=== PATIENT | female | born 1970 | race Caucasian/White ===

== ENCOUNTER 2017-02-18 02:59 | Inpatient (IN) | payer MEDICARE, MEDICAID ==
[~2017-02-18] VITALS: Ht 170.2 cm; Wt 49.4 kg
[2017-02-18] VITALS (46 sets, daily range): BP systolic 81–135; BP diastolic 45–89
[2017-02-18] MEDS ORDERED: NALOXONE PREFILLED SYRINGE 2 MG/2 ML SYRINGE ONE (03:07)
[2017-02-18] MEDS ORDERED: IV NS 0.9% 1,000 ML ONE ×3 (03:09→04:37)
--- NOTE | 2017-02-18 03:09 | NUR ---
PT BIBRA FROM HOME FOR "ALTERED; POSSIBLE ALCOHOL WITHDRAWAL" PER RA 102 REPORT SHALLOW BREATHING WITH RR 6/BRADYCARDIC IN THE 40'S; HYPOTENSIVE 60/47. PT NONVERBAL, NON RESPONSEIVE, NOTED SHALLOW BREATHING, PT PLACED ON NON REBREATHER. NO NVD. PT NOTED PALE. MD AT BEDSIDE FOR EVAL. RT CALLED.
--- NOTE | 2017-02-18 03:10 | NUR ---
ACCJUAN MANUELECK NOTED AT 300. DR. GERMAIN AWARE.
[2017-02-18] MEDS ORDERED: IV SET PRIMARY 1 EA INFUS.SET MC ONE (03:11)
--- NOTE | 2017-02-18 03:11 | NUR ---
IV STARTED ON LEFT AC 20G, PT NONVERBAL, NOTED SHALLOW BREATHING. VERBAL ORDERS PER DR. EVA BECKWITHAN 2MG IVP ONE TIME NOW. PT MEDICATED.
--- NOTE | 2017-02-18 03:12 | NUR ---
IV STARTED ON RIGHT WRIST 18G, RT AT BEDSIDE. VERBAL ORDERS PER DR. GERMAIN TO GIVE IV 2L NS BOLUS ONE TIME NOW. PT MEDICATED. Addendum: 02/18/17 at 0447 by SONU CORRECTION IV STARTED ON RIGHT HAND 18G
--- NOTE | 2017-02-18 03:17 | NUR ---
PT ASPIRATED COFFEE BROWN EMESIS.
--- NOTE | 2017-02-18 03:18 | NUR ---
PT INTUBATED PER DR. GERMAIN, RT AT BEDSIDE. ET TUBE 7.5, 23CM AT THE LIP.
--- NOTE | 2017-02-18 03:18 | NUR ---
PT ORALLY INTUBATED WITH 7.5 ETT AT 23@ THE LIP. SUCTIONED LARGE AMOUNT OF BROWN THICK SECRETIONS, BILATERAL BS NOTED. ABG DONE. VENT ALARMED AND WORKING. VENT PLUGGED INTO RED OUTLET.AMBU BAG AT BEDSIDE. WILL CONTINUE TO MONITOR.
--- NOTE | 2017-02-18 03:26 | NUR ---
NGT INSERTED, 70CM AT THE LIP, PLACED ON CONTINUOUS SUTIONING.
[2017-02-18] MEDS ORDERED: NALOXONE PREFILLED SYRINGE 2 MG/2 ML SYRINGE IV ONE (03:30)
[2017-02-18] MEDS ORDERED: ROCURONIUM BROMIDE 100 MG/10 ML VIAL IV ONE (03:30)
[2017-02-18] MEDS ORDERED: IV NS 0.9% 1,000 ML BAG IV ONE ×3 (03:30→08:00)
--- NOTE | 2017-02-18 03:33 | NUR ---
XRAY AT BEDSIDE
--- NOTE | 2017-02-18 03:35 | NUR ---
PER RT PT PLACED ON VENT WITH PRESCRIBED SETTINGS. AC 16, VT 500 FI02 40%, PEEP 5.
--- NOTE | 2017-02-18 03:43 | NUR ---
16 FR. GRAVES PLACED PER MD, URINE COLLECTED. SENT TO LAB.
--- NOTE | 2017-02-18 03:45 | NUR ---
LAB AT BEDSIDE FOR BLOOD DRAW AND BLOOD CX DRAW
--- NOTE | 2017-02-18 03:56 | NUR ---
PT TO CT WITH RN, RT AND EMT.
[2017-02-18] MEDS ORDERED: PANTOPRAZOLE 80 MG in IV NS 0.9% 500 ML IV PRN (04:00)
[2017-02-18] MEDS ORDERED: PANTOPRAZOLE 80 MG in IV NS 0.9% 100 ML IV ONE (04:00)
[2017-02-18] MEDS ORDERED: IV SET PRIMARY PUMP SET 1 EA INFUS.SET MC ONE ×9 (04:04→20:54)
[2017-02-18] MEDS ORDERED: IV NS 0.9% 100 ML IV ONE ×3 (04:04→05:28)
[2017-02-18] MEDS ORDERED: PANTOPRAZOLE 40 MG VIAL ONE ×2 (04:04→04:27)
[2017-02-18 04:05] LABS: EOSINOPHILS % (AUTO) 0.1 % (0.0-6.0); HEMATOCRIT 36 % (33-45); HEMOGLOBIN 11.4 g/dL (11.5-14.8); LYMPHOCYTES # (AUTO) 1.2 /CMM (0.8-4.8); LYMPHOCYTES % (AUTO) 7.7 % (20.0-44.0); MEAN CORPUSCULAR HEMOGLOBIN 34 PG (26.0-33.0); MEAN CORPUSCULAR HGB CONC 32 g/dl (31.0-36.0); MEAN CORPUSCULAR VOLUME 107 fL (82-100); MONOCYTES # (AUTO) 0.8 /CMM (0.1-1.30); MONOCYTES % (AUTO) 5.3 % (2.0-12.0); NEUTROPHILS % (AUTO) 86.9 % (43.0-81.0); PLATELET COUNT (AUTO) 77 /CMM (150-450); RDW COEFFICIENT OF VARIATION 14.2 (11.5-15.0); RED BLOOD CELL COUNT(AUTO) 3.36 MIL/uL (4.0-5.2); WHITE BLOOD COUNT (AUTO) 14.9 K/uL (4.3-11.0)
--- NOTE | 2017-02-18 04:06 | NUR ---
PT RETURNED FROM CT.
[2017-02-18 04:07] LABS: BILIRUBIN,URINE NEGATIVE (NEGATIVE); BLOOD, URINE 2+ Ery/uL (NEGATIVE); COLOR,URINE YELLOW (YELLOW); KETONES,URINE 2+ (NEGATIVE); LEUKOCYTE ESTERASE ,URINE NEGATIVE (NEGATIVE); NITRITE, URINE NEGATIVE (NEGATIVE); PROTEIN,URINE 2+ mg/dl (NEGATIVE); UGLUCOSE NEGATIVE (NEGATIVE); UROBILINOGEN,URINE 0.2 EU/dL (0.2)
[2017-02-18 04:15] LABS: APPEARANCE,URINE SLIGHTLY CLOUDY (CLEAR)
[2017-02-18 04:18] LABS: URINE AMORPHOUS URATE Many /HPF (None Seen)
[2017-02-18 04:19] LABS: BACTERIA,URINE None seen /HPF (None Seen); SQUAMOUS EPITHELIAL CELL,UR Moderate /HPF (None Seen); WBC,URINE 0-2 /HPF (0-3)
[2017-02-18 04:23] LABS: TROPONIN I 0.027 ng/mL (0.00-0.056)
[2017-02-18] MEDS ORDERED: IV NS 0.9% 500 ML IV ONE (04:27)
[2017-02-18 04:28] LABS: ALANINE AMINOTRANSFERASE 81 U/L (12-78); ALBUMIN 2.6 g/dL (3.4-5.0); ALKALINE PHOSPHATASE 76 U/L (46-116); ASPARTATE AMINOTRANSFERASE 212 U/L (15-37); BILIRUBIN,DIRECT 0.5 mg/dL (0.0-0.2); CALCIUM, SERUM 7.2 mg/dL (8.5-10.1); CHLORIDE 96 mmol/L (98-107); CREATININE 1.4 mg/dL (0.6-1.3); GLUCOSE 258 mg/dL (74-106); POTASSIUM 4.1 mmol/L (3.5-5.1); SODIUM SERUM 133 mmol/L (136-145); TOTAL PROTEIN, SERUM 5.5 g/dL (6.4-8.2); UREA NITROGEN, BLOOD 9 mg/dL (7-18)
[2017-02-18 04:30] LABS: ABG BASE EXCESS -32.1 mmol/L; ABG OXYGEN SATURATION 91.1 % (92.0-98.5); ABG PCO2 33.8 mmHg (35.0-45.0); ABG PH 6.679 (7.350-7.450); ABG PO2 103.5 mmHg (75.0-100.0); AaDO2 142.8 mmHg; COHb 0.1 % (0.5-1.5); MetHb 0.8 % (0.0-1.5); O2Hb 90.3 % (94.0-97.0); PEEP,BG 5 cm H2O; SITE, ABG Right Radial; VT, ABG 500 mL
[2017-02-18] MEDS ORDERED: LEVOFLOXACIN 750 MG /D5W 150ML PIGGYBACK IV ONE (04:30)
[2017-02-18] MEDS ORDERED: AZTREONAM 1 G in IV NS 0.9% 100 ML IV ONE (04:30)
[2017-02-18 04:34] LABS: CARBON DIOXIDE 7 mmol/L (21-32)
[2017-02-18] MEDS ORDERED: SODIUM BICARBONATE SYR 50 MEQ/50 ML DISP.SYRIN ONE ×3 (04:34→04:38)
[2017-02-18 04:40] LABS: INR 1.11 (0.87-1.13)
--- NOTE | 2017-02-18 04:45 | NUR ---
RECEIVED SODIUM BICARB FROM JOCELYN PHELPS
[2017-02-18] MEDS ORDERED: AZTREONAM 1 G VIAL ONE (04:50)
[2017-02-18 04:56] LABS: ALCOHOL, BLOOD 4 mg/dL (0-0)
[2017-02-18] MEDS ORDERED: SODIUM BICARBONATE SYR 100 MEQ in IV NS 0.9% 1,000 ML IV PRN (05:00)
[2017-02-18] MEDS ORDERED: SODIUM BICARBONATE SYR 50 MEQ/50 ML DISP.SYRIN IV ONE (05:00)
--- NOTE | 2017-02-18 05:23 | NUR ---
REPORT GIVEN TO JOCELYN FULTON FOR CONTINUE OF CARE.
[2017-02-18] MEDS ORDERED: INSULIN REGULAR, HUMAN 100 UNIT in IV NS 0.9% 99 ML IV PRN ×2 (05:30)
[2017-02-18] MEDS ORDERED: INSULIN REGULAR, HUMAN 100 UNIT/ML 10 ML VIAL ONE (05:32)
--- NOTE | 2017-02-18 05:36 | NUR ---
DR. GERMAIN AT BEDSIDE SPEAKING TO REGARDING POC.
[2017-02-18 05:41] LABS: BAND % (MANUAL) 7 % (0.0-5.0); LYMPHOCYTES % (MANUAL) 9 % (16-48); MONOCYTES % (MANUAL) 4 % (0-11.0); NEUTROPHILS % (MANUAL) 80 (42-76)
--- NOTE | 2017-02-18 05:48 | NUR ---
MAYDA GERMAIN TO HOLD INSULIN DRIP AT THIS TIME.
--- NOTE | 2017-02-18 05:49 | NUR ---
RECTAL TEMP NOTED AT 94.[address] GERMAIN
--- NOTE | 2017-02-18 06:03 | NUR ---
DR. GERMAIN SPEAKING TO DR. CARDONA REGARDING ADMISSION.
--- NOTE | 2017-02-18 06:13 | NUR ---
DEFECT REPAIRER GLASSWARE: PT RECEIVED ORALLY INTUBATED AND TOLERATING VENT SETTINGS ORDERED. OBTUNDED, NOT ON ANY SEDATION DRIP AND WITHDRAWS ONLY TO DEEP PAIN STIMULI. NO ACUTE DISTRESS, NO EVIDENCE OF DISCOMFORT. TEMP=94.7 AND WILL CONTINUE TO PLACE ON ROSA HUGGER. ST ON MONITOR WT HR IN THE 120s. ONGOING PROTONIX AND BICARB DRIP. NOTED MODERATE NASAL BLEEDING. OGT CLAMPED. HOB ELEVATED. F/C PATENT AND INTACT DRAINING YELLOW URINE. BODY ASSESSMENT DONE. REPOSITIONED FOR COMFORT. SAFETY PRECAUTION NOTED. AWAITING FOR ADMISSION ORDERS.
--- NOTE | 2017-02-18 06:22 | NUR ---
PT TRANSFERED PER ACLS PROTOCOL.
[2017-02-18] MEDS ORDERED: LEVOFLOXACIN 750 MG /D5W 150ML 150 ML IV ONE (06:42)
--- NOTE | 2017-02-18 07:15 | NUR ---
PIN FEATHER MACHINE OPERATOR- INITIAL NOTE RECEIVED PT DROWSY, INTUBATED ETT 7.5, 23 CM AT THE LIP. ON MECHANICAL VENT: AC 16, 5V 500, FI02 40%, PEEP 5. BEDSIDE MONITOR REVEALS SINUS TACHYCARDIA, HR= 120. OG TUBE PRESENT AND CLAMPED. TWO IVS PRESENT: LAC 20G HL AND RIGHT HAND 20G RUNNING RUNNING NA BICARB @ 100 MLS/HR AND PROTONIX GTT AT 50 MLS/HR. BOTH IVS FLUSHED, PATENT, INTACT AND FREE OF REDNESS, SWELLING & INFLAMMATION. GRAVES CATHETER DRAINING VITO, CLEAR URINE TO GRAVITY. WILL CALL MD FOR ADMITTING ORDERS. SAFETY MEASURES TAKEN: BED LOCKED AND IN LOW POSITION, SIDE RAILS UP X2 AND BED ALARM ON, WILL CONTINUE TO MONITOR. Addendum: 02/18/17 at 1207 by LOU CABRAL RN RECEIVED PT ON ROSA ALVAREZ. WILL CONTINUE TO MONITOR CORE TEMP IS ROSA ALVAREZ IS STILL NEEDED.
--- NOTE | 2017-02-18 07:35 | NUR ---
CRAB FISHERMAN- CALLED AND SPOKE TO PT'S , JEAN DAVIS OBTAINED CONSENT FOR PICC LINE, VERIFIED WITH DILAN BANKS. WILL CONTINUE TO MONITOR.
[2017-02-18] MEDS ORDERED: IV D5/ 0.9% NACL 1,000 ML IV PRN (08:00)
[2017-02-18] MEDS ORDERED: PHENYLEPHRINE 20 MG in IV D5W 250 ML IV PRN ×2 (08:00)
[2017-02-18] MEDS ORDERED: VANCOMYCIN 1 GM in IV D5W 250 ML IV ONE (08:00)
--- NOTE | 2017-02-18 08:20 | NUR ---
TIE SAWYER- ABGS DONE BY RT. RATE INCREASED TO 20 AND FIO2 INCREASED TO 70%, PT SATURATING AT 97%, WILL CONTINUE TO MONITOR.
[2017-02-18] MEDS ORDERED: FEE PK DOSING 1 MIN EA MC ONE (08:23)
[2017-02-18 08:29] LABS: ABG BASE EXCESS -16.9 mmol/L; ABG OXYGEN SATURATION 85.7 % (92.0-98.5); ABG PCO2 32.9 mmHg (35.0-45.0); ABG PH 7.141 (7.350-7.450); ABG PO2 60.2 mmHg (75.0-100.0); AaDO2 259.3 mmHg; COHb 0.4 % (0.5-1.5); O2Hb 84.5 % (94.0-97.0); PEEP,BG 5 cm H2O; SITE, ABG Left Radial; VT, ABG 500 mL
[2017-02-18] MEDS ORDERED: PROPOFOL 100 ML IV PRN (08:30)
[2017-02-18] MEDS ORDERED: SECONDARY IV SET 1 EA INFUS.SET MC ONE (08:48)
[2017-02-18] MEDS: PANTOPRAZOLE 80 MG in IV NS 0.9% 500 ML IV PRN ×2 (08:55→15:08)
[2017-02-18] MEDS ORDERED: PANTOPRAZOLE 40 MG VIAL IV SCH (09:00)
[2017-02-18] MEDS: VANCOMYCIN 0.75 GM in IV D5W 250 ML IV SCH ×2 (09:01→20:58)
[2017-02-18] MEDS: Thiamine 100 MG in IV D5W 50 ML IV SCH (09:04)
[2017-02-18] MEDS: Folic acid 1 MG in IV D5W 50 ML IV SCH (09:27)
[2017-02-18] MEDS: MORPHINE SULFATE INJ 2 MG/ML DISP.SYRIN IV PRN (09:30)
[2017-02-18 09:44] LABS: THYROID STIMULATING HORMONE 0.886 uIU/mL (0.358-3.74)
[2017-02-18] MEDS: PIPERACILLIN /TAZOBACTAM 3.375 G in IV D5W 50 ML IV SCH ×3 (10:16→22:20)
[2017-02-18] MEDS ORDERED: Sodium Bicarbonate 150 MEQ in IV D5W 1,000 ML IV PRN (10:30)
[2017-02-18] MEDS: LORAZEPAM INJ 2 MG/ML VIAL IVP PRN ×3 (10:46→22:32)
[2017-02-18 12:09] LABS: BASOPHILS % (AUTO) 0.2 % (0.0-2.0); HEMATOCRIT 31 % (33-45); HEMOGLOBIN 10.5 g/dL (11.5-14.8); LYMPHOCYTES # (AUTO) 0.3 /CMM (0.8-4.8); LYMPHOCYTES % (AUTO) 3.2 % (20.0-44.0); MEAN CORPUSCULAR HEMOGLOBIN 35 PG (26.0-33.0); MEAN CORPUSCULAR HGB CONC 34 g/dl (31.0-36.0); MEAN CORPUSCULAR VOLUME 101 fL (82-100); MONOCYTES # (AUTO) 0.3 /CMM (0.1-1.30); MONOCYTES % (AUTO) 2.8 % (2.0-12.0); NEUTROPHILS # (AUTO) 8.3 /CMM (1.8-8.9); NEUTROPHILS % (AUTO) 93.8 % (43.0-81.0); PLATELET COUNT (AUTO) 51 /CMM (150-450); RDW COEFFICIENT OF VARIATION 13.7 (11.5-15.0); RED BLOOD CELL COUNT(AUTO) 3.04 MIL/uL (4.0-5.2); WHITE BLOOD COUNT (AUTO) 8.9 K/uL (4.3-11.0)
[2017-02-18 12:44] LABS: BAND % (MANUAL) 13 % (0.0-5.0); LYMPHOCYTES % (MANUAL) 5 % (16-48); MONOCYTES % (MANUAL) 3 % (0-11.0); NEUTROPHILS % (MANUAL) 79 (42-76)
[2017-02-18] MEDS: PROPOFOL 100 ML IV PRN ×3 (13:30→23:49)
[2017-02-18] MEDS ORDERED: Z GUARD REMEDY 2 OZ OINT TP PRN (14:30)
[2017-02-18] MEDS ORDERED: ACETAMINOPHEN 650 MG/SUPP.RECT RC PRN (14:30)
[2017-02-18] MEDS ORDERED: NITROPRUSSIDE SODIUM 50 MG in IV D5W 250 ML IV PRN (15:00)
[2017-02-18 16:48] LABS: ABG BASE EXCESS -7.4 mmol/L; ABG OXYGEN SATURATION 98.9 % (92.0-98.5); ABG PCO2 23.8 mmHg (35.0-45.0); ABG PH 7.427 (7.350-7.450); ABG PO2 233.7 mmHg (75.0-100.0); AaDO2 239.8 mmHg; COHb 0.3 % (0.5-1.5); MetHb 1.1 % (0.0-1.5); O2Hb 97.5 % (94.0-97.0); PEEP,BG 5 cm H2O; SITE, ABG Right Radial; VT, ABG 500 mL
--- NOTE | 2017-02-18 17:00 | NUR ---
DECORATIVE CUTTING MACHINE TENDER- INFORMED DR. WEBBER OF PT'S ABG RESULTS, H= 7.42, PC02 23.8, HC03= 15.3 AND PO2= 233.7. PER MD, DISCONTINUE BICARB GTT AND RESUME PREVIOUS IVF OF D5NS @ 100 MLS/HR. ORDERS PLACED AND CARRIED OUT. WILL CONTINUE TO MONITOR.
[2017-02-18] MEDS ORDERED: IV D5/ 0.9% NACL 1,000 ML IV ONE (17:30)
[2017-02-18 17:47] LABS: BILIRUBIN,DIRECT 1.3 mg/dL (0.0-0.2); TOTAL PROTEIN, SERUM 4.4 g/dL (6.4-8.2)
[2017-02-18] MEDS: IV D5/ 0.9% NACL 1,000 ML IV PRN (18:12)
[2017-02-18 18:27] LABS: BILIRUBIN,TOTAL 2.6 mg/dL (0.2-1.0)
--- NOTE | 2017-02-18 18:45 | NUR ---
DATA MINER- END OF SHIFT NOTE PT REMAINS DROWSY, CONTINUES ON DIPRIVAN GTT AT 70 MCG/MIN AND BILATERAL SOFT WRIST RESTRAINTS. CARRIE PICC LINE ALSO RUNNING D5NS @ 100 MLS/HR AND PROTONIX GTT AT 50 MLS/HR. OGT REMAINS CONNECTED TO LIS, MINIMAL OUTPUT NOTED. GRAVES CATHETER DRAINING TO GRAVITY. PT SEEN AND EXAMINED TODAY BY DR. PATTERSON, DR. DURAN, DR. WEBBER, DR. DEGROOT AND DR. PORTER. ALL ORDERS CARRIED OUT. VITAL SIGNS STABLE. WILL ENDORSE TO FOOD CART ATTENDANT NURSE FOR CONTINUITY OF CARE.
--- NOTE | 2017-02-18 19:30 | NUR ---
DIKE SUPERVISOR: RECEIVED PT ORALLY INTUBATED AND TOLERATING VENT SETTINGS ORDERED. SEDATED ON DIPRIVAN DRIP AT 70MCG/KG/MIN. ABLE TO OPEN EYES WT LIGHT PAIN AND FOLLOW SIMPLE COMMANDS. ST ON MONITOR WT HR IN LOW 100s. TEMP=99.1 VIA NASAL PROBE. WT EPISODES OF MOVING LEGS, ARMS AND TRYING TO PULL TUBINGS. BILAT. SOFT WRIST RESTRAINTS IN PLACE PER PROTOCOL. CONTINUE ON PROTONIX DRIP FOR POSSIBLE GI BLEED. OGT IN PLACE & ON LOW INTERMITTENT SUCTION WT NO GASTRIC OUTPUT AT THIS TIME. TOLERATING D5 NS AT 100ML/HR WT GOOD URINE OUTPUT VIA F/C. HOB ELEVATED. SAFETY PRECAUTION NOTED. WILL CONTINUE TO MONITOR.
--- NOTE | 2017-02-18 20:10 | NUR ---
LIGHT RAIL VEHICLE OPERATOR: AT BEDSIDE AND UPDATED PT. STATUS. GIVEN BACK 3 RINGS AND WITNESSED BY ED, CHARGE NURSE.
--- NOTE | 2017-02-18 23:30 | NUR ---
MEAT PASSER: PT STILL NOTED WT EPISODE OF RESTLESSNESS AND TRYING TO PULL TUBINGS EVEN AFTER BEING GIVEN ATIVAN. PT. OPENS EYES AND FOLLOW SIMPLE COMMANDS. BILAT. SOFT WRIST RESTRAINTS IN PLACE WT GOOD CIRCULATION AND NO NEW SKIN BREAKDOWN WHEN RELEASED AND CHECKED.
[2017-02-19] VITALS (43 sets, daily range): BP systolic 82–115; BP diastolic 42–81
[2017-02-19] MEDS: PANTOPRAZOLE 80 MG in IV NS 0.9% 500 ML IV PRN ×3 (00:10→21:00)
[2017-02-19] MEDS: PROPOFOL 100 ML IV PRN ×6 (02:39→20:17)
[2017-02-19] MEDS: PIPERACILLIN /TAZOBACTAM 3.375 G in IV D5W 50 ML IV SCH ×4 (04:15→22:05)
[2017-02-19 05:00] LABS: EOSINOPHILS % (AUTO) 0.1 % (0.0-6.0); HEMATOCRIT 28 % (33-45); HEMOGLOBIN 9.9 g/dL (11.5-14.8); LYMPHOCYTES # (AUTO) 0.7 /CMM (0.8-4.8); LYMPHOCYTES % (AUTO) 6.1 % (20.0-44.0); MEAN CORPUSCULAR HEMOGLOBIN 35 PG (26.0-33.0); MEAN CORPUSCULAR HGB CONC 35 g/dl (31.0-36.0); MEAN CORPUSCULAR VOLUME 101 fL (82-100); MONOCYTES # (AUTO) 0.2 /CMM (0.1-1.30); MONOCYTES % (AUTO) 1.8 % (2.0-12.0); NEUTROPHILS # (AUTO) 9.8 /CMM (1.8-8.9); RDW COEFFICIENT OF VARIATION 13.6 (11.5-15.0); RED BLOOD CELL COUNT(AUTO) 2.83 MIL/uL (4.0-5.2); WHITE BLOOD COUNT (AUTO) 10.7 K/uL (4.3-11.0)
[2017-02-19 05:03] LABS: PLATELET COUNT (AUTO) 41 /CMM (150-450)
[2017-02-19 05:04] LABS: TROPONIN I 0.089 ng/mL (0.00-0.056)
[2017-02-19 05:09] LABS: CREATINE KINASE MB 13.4 ng/mL (0-3.6)
[2017-02-19 05:10] LABS: LYMPHOCYTES % (MANUAL) 6 % (16-48); MONOCYTES % (MANUAL) 2 % (0-11.0); NEUTROPHILS % (MANUAL) 92 (42-76)
[2017-02-19] MEDS: IV D5/ 0.9% NACL 1,000 ML IV PRN ×2 (05:16→22:06)
--- NOTE | 2017-02-19 06:50 | NUR ---
HORTICULTURAL TECHNICAL OFFICER: REMAINED SEDATED ON DIPRIVAN DRIP AT 75MCG/KG/MIN. STILL WT EPISODES OF TRYING TO PULL TUBINGS. BILAT. SOFT WRIST RESTRAINTS IN PLACE PER PROTOCOL. SAFETY PRECAUTION NOTED AT ALL TIMES.
--- NOTE | 2017-02-19 07:33 | NUR ---
PERFUME COMPOUNDER RECEIVED PATIENT FROM THE PREVIOUS SHIFT. PATIENT IS IN BED. SEDATED ON DIPRIVAN 75 MCG. AFEBRILE. SINUS RHYTHM ON MONITOR. PATIENT IS ABLE TO FOLLOW COMMANDS. RESTRAINTS ARE ON FOR SAFETY. TURNED AND REPOSITIONED FOR COMFORT AND WOUND PREVENTION. WILL CONTINUE TO MONITOR AND PROVIDE CARE.
[2017-02-19] MEDS ORDERED: IV SET PRIMARY PUMP SET 1 EA INFUS.SET MC ONE ×2 (08:53→20:05)
[2017-02-19] MEDS: VANCOMYCIN 0.75 GM in IV D5W 250 ML IV SCH ×2 (08:57→21:00)
[2017-02-19] MEDS: LORAZEPAM INJ 2 MG/ML VIAL IVP PRN ×2 (08:58→12:07)
[2017-02-19 09:25] LABS: ALBUMIN 2.2 g/dL (3.4-5.0); BILIRUBIN,TOTAL 1.2 mg/dL (0.2-1.0); CALCIUM, SERUM 6.6 mg/dL (8.5-10.1); CREATININE 0.9 mg/dL (0.6-1.3); TOTAL PROTEIN, SERUM 4.8 g/dL (6.4-8.2)
[2017-02-19 09:33] LABS: MAGNESIUM 1.6 mg/dL (1.8-2.4); POTASSIUM 2.8 mmol/L (3.5-5.1)
[2017-02-19 09:36] LABS: PHOSPHORUS 0.3 mg/dL (2.5-4.9)
[2017-02-19] MEDS: Folic acid 1 MG in IV D5W 50 ML IV SCH (09:56)
[2017-02-19] MEDS: Thiamine 100 MG in IV D5W 50 ML IV SCH (09:56)
[2017-02-19 10:18] LABS: INR 1.04 (0.87-1.13); PROTHROMBIN TIME 11.2 SECS (9.5-12.7)
[2017-02-19] MEDS: MORPHINE SULFATE INJ 2 MG/ML DISP.SYRIN IV PRN (10:25)
[2017-02-19] MEDS ORDERED: SECONDARY IV SET 1 EA INFUS.SET MC ONE (10:33)
[2017-02-19] MEDS: POTASSIUM CL. PREMIX PERIPHER. 50 ML IV SCH ×6 (11:14→23:07)
[2017-02-19] MEDS: Magnesium 1GM/D5W 100ML PREMIX 100 ML IV SCH ×4 (11:14→14:05)
[2017-02-19] MEDS: Potassium Phosphate meq 11 MEQ in IV D5W 100 ML IV SCH ×2 (11:15→15:01)
[2017-02-19 12:59] LABS: ABG BASE EXCESS -1.2 mmol/L; ABG OXYGEN SATURATION 98.4 % (92.0-98.5); ABG PCO2 23.3 mmHg (35.0-45.0); ABG PH 7.554 (7.350-7.450); ABG PO2 213.5 mmHg (75.0-100.0); AaDO2 152.7 mmHg; COHb 0.3 % (0.5-1.5); MetHb 1.2 % (0.0-1.5); O2Hb 96.9 % (94.0-97.0); PEEP,BG 5 cm H2O; SITE, ABG Right Radial; VT, ABG 500 mL
[2017-02-19 14:16] LABS: D-DIMER 3.79 mg/L(FEU (0.17-0.50); INR 1.06 (0.87-1.13); PROTHROMBIN TIME 11.4 SECS (9.5-12.7)
[2017-02-19] MEDS ORDERED: PRED25PO13 MC (14:25)
[2017-02-19] MEDS ORDERED: EPIN0.3P3 IJ (14:25)
[2017-02-19] MEDS ORDERED: HYDR-3652 PO (14:25)
[2017-02-19] MEDS ORDERED: MOME15OI2 TP (14:25)
[2017-02-19] MEDS ORDERED: DICL75TA5 PO (14:26)
--- NOTE | 2017-02-19 16:18 | NUR ---
[employer] WEBSPHERE PORTAL DEVELOPER RN CALLED ER X 3 TO INQUIRE ABOUT THE MISSING BLUE BAG. ER PERSONNEL COULD NOT FIND THE BELONGINGS. VICE PRESIDENT INDUSTRIAL RELATIONS MADE AWARE.
[2017-02-19] MEDS ORDERED: Magnesium 1GM/D5W 100ML PREMIX 100 ML IV SCH (17:56)
[2017-02-19] MEDS ORDERED: Sodium Phosphate 15 MMOL in IV D5W 250 ML IV ONE (18:00)
[2017-02-19] MEDS ORDERED: PHENYLEPHRINE 20 MG in IV D5W 250 ML IV PRN (19:00)
--- NOTE | 2017-02-19 20:00 | NUR ---
Received patient sedated.VS stable.SR per cardiac monitoring.Orally intubated to vent on AC mode. Tolerating prescribed vent settings.SPO2 100%.Suction small amount blood tinge secretions.Oral care done.NPO with NGT to LCS draining small amount coffee ground output.Abdomen soft BS active.FC with clear tor urine.Turned and repositioned offloading pressure points.SCD on bilaterally.Maintained on KCI mattress.IVF,Protonix drip and Diprivan drip infusing via CARRIE PICC Line and site intact.Continue monitoring.
[2017-02-19 20:46] LABS: CALCIUM, SERUM 6.5 mg/dL (8.5-10.1); CREATININE 0.7 mg/dL (0.6-1.3); MAGNESIUM 2.9 mg/dL (1.8-2.4)
[2017-02-19 20:56] LABS: IRON, SERUM 54 ug/dl (50-175); TOTAL IRON BINDING CAPACITY 147 ug/dl (250-450)
[2017-02-19 20:58] LABS: POTASSIUM 2.2 mmol/L (3.5-5.1)
--- NOTE | 2017-02-19 21:50 | NUR ---
Patient K2.2 called to with orders and carried out.
[2017-02-19] MEDS ORDERED: POTASSIUM CHLORIDE 20 MEQ POWDER PACKET ONE (21:53)
[2017-02-19] MEDS ORDERED: POTASSIUM CL. PREMIX PERIPHER. 300 ML ONE (21:53)
[2017-02-19] MEDS ORDERED: POTASSIUM CHLORIDE 20 MEQ POWDER PACKET GT ONE (22:00)
--- NOTE | 2017-02-19 22:00 | NUR ---
Abdominal Ultrasound done at bedside by US TECH.
[2017-02-20] VITALS (76 sets, daily range): BP systolic 79–137; BP diastolic 49–95
[2017-02-20] MEDS ORDERED: IV SET PRIMARY PUMP SET 1 EA INFUS.SET MC ONE ×2 (00:03→15:29)
[2017-02-20] MEDS: POTASSIUM CL. PREMIX PERIPHER. 50 ML IV SCH ×4 (00:07→03:12)
--- NOTE | 2017-02-20 00:30 | NUR ---
Patient BP unstable.79/49 Neosynephrine drip started at 20 mcg/min and will titrate accordingly. Medication unable to scan.Multiple scan done by 2 RN per emar says it exceed dose.
[2017-02-20] MEDS: PROPOFOL 100 ML IV PRN ×4 (01:32→20:32)
[2017-02-20] MEDS: PIPERACILLIN /TAZOBACTAM 3.375 G in IV D5W 50 ML IV SCH ×4 (04:05→21:51)
[2017-02-20 04:45] LABS: BASOPHILS % (AUTO) 0.1 % (0.0-2.0); EOSINOPHILS # (AUTO) 0.2 /CMM (0.0-0.7); EOSINOPHILS % (AUTO) 1.8 % (0.0-6.0); HEMATOCRIT 30 % (33-45); HEMOGLOBIN 10.2 g/dL (11.5-14.8); LYMPHOCYTES # (AUTO) 0.8 /CMM (0.8-4.8); LYMPHOCYTES % (AUTO) 8.2 % (20.0-44.0); MEAN CORPUSCULAR HEMOGLOBIN 34 PG (26.0-33.0); MEAN CORPUSCULAR HGB CONC 34 g/dl (31.0-36.0); MEAN CORPUSCULAR VOLUME 100 fL (82-100); MONOCYTES # (AUTO) 0.2 /CMM (0.1-1.30); MONOCYTES % (AUTO) 2.4 % (2.0-12.0); NEUTROPHILS # (AUTO) 8.4 /CMM (1.8-8.9); NEUTROPHILS % (AUTO) 87.5 % (43.0-81.0); RDW COEFFICIENT OF VARIATION 14.8 (11.5-15.0); RED BLOOD CELL COUNT(AUTO) 3.02 MIL/uL (4.0-5.2); WHITE BLOOD COUNT (AUTO) 9.6 K/uL (4.3-11.0)
[2017-02-20 04:49] LABS: PLATELET COUNT (AUTO) 40 /CMM (150-450)
[2017-02-20 05:02] LABS: LYMPHOCYTES % (MANUAL) 10 % (16-48); MONOCYTES % (MANUAL) 1 % (0-11.0); NEUTROPHILS % (MANUAL) 89 (42-76)
[2017-02-20 05:55] LABS: CALCIUM, SERUM 7.1 mg/dL (8.5-10.1); CREATININE 0.8 mg/dL (0.6-1.3); MAGNESIUM 2.8 mg/dL (1.8-2.4); POTASSIUM 4.4 mmol/L (3.5-5.1)
[2017-02-20 05:57] LABS: PHOSPHORUS 0.7 mg/dL (2.5-4.9)
--- NOTE | 2017-02-20 06:27 | NUR ---
Patient AM labs resulted.Phosphorus 0.7 called to with read back telephone orders received and carried out.
[2017-02-20] MEDS ORDERED: NEUTRA PHOS 1 POWD.PACKET ONE ×3 (06:30→21:44)
[2017-02-20] MEDS ORDERED: NEUTRA PHOS 1 POWD.PACKET PO ONE (07:00)
--- NOTE | 2017-02-20 07:01 | NUR ---
Patient resting all due medications given.SR.Rudy synephrine infusing at 40 mcg/min. No acute distress noted.Report given to JOCELYN LAWSON for continuity of care.
[2017-02-20] MEDS: PANTOPRAZOLE 80 MG in IV NS 0.9% 500 ML IV PRN ×2 (07:15→17:38)
--- NOTE | 2017-02-20 07:45 | NUR ---
AUTO SELF SERVICE STATION ATTENDANT RECEIVED PATIENT FROM THE PREVIOUS SHIFT. PATIENT IS IN BED. SEDATED ON DIPRIVAN 60 MCG/KG. ON 40 MCG/MIN NEOSENEPHRINE. BP MONITORED. AFEBRILE. IVF RUNNING. PROTONIX GTT RUNNING. TURNED AND REPOSITIONED FOR COMFORT AND WOUND PREVENTION. WILL CONTINUE TO MONITOR AND PROVIDE CARE.
[2017-02-20] MEDS: IV D5/ 0.9% NACL 1,000 ML IV PRN ×2 (08:30→21:51)
[2017-02-20] MEDS: VANCOMYCIN 0.75 GM in IV D5W 250 ML IV SCH ×2 (08:30→20:36)
[2017-02-20] MEDS ORDERED: PHENYLEPHRINE 20 MG in IV D5W 250 ML IV PRN (09:00)
[2017-02-20] MEDS: Folic acid 1 MG in IV D5W 50 ML IV SCH (09:31)
[2017-02-20] MEDS: Thiamine 100 MG in IV D5W 50 ML IV SCH (09:31)
[2017-02-20] MEDS: Potassium Phosphate meq 11 MEQ in IV D5W 100 ML IV SCH ×2 (11:55→15:35)
[2017-02-20] MEDS: CALCITRIOL ORAL SOLUTION 1 MCG/ML NG SCH (11:56)
--- NOTE | 2017-02-20 16:10 | NUR ---
RAYMOND was unable to perform social service consultation because the patient was intubated. RAYMOND will check in with patient tomorrow (02/21).
[2017-02-20] MEDS ORDERED: NEUTRA PHOS 1 POWD.PACKET NG ONE (22:00)
[2017-02-21] VITALS (55 sets, daily range): BP systolic 96–166; BP diastolic 60–97
[2017-02-21] MEDS ORDERED: IV SET PRIMARY PUMP SET 1 EA INFUS.SET MC ONE ×2 (00:28→13:43)
[2017-02-21] MEDS: PROPOFOL 100 ML IV PRN ×5 (00:37→21:36)
--- NOTE | 2017-02-21 01:34 | NUR ---
PROCESSING ENGINEER- RECEIVED PT.ON DIPRIVAN GTT. AT 70MCG/KG/MIN. PT. TAKES ROUGHLY 8-10 MINS. FOR HER TO BE MIN. AROUSABLE FOR SEDATION VACATION. PT. HAD PHOS LEVEL DRAWN AT 1999. LEVEL WAS LOW AT 1.3. DR.SAM SOTO WAS PAGED & ORDERS REC'D. PT. WAS ADM. 4 PKTS OF NEUTROPHOS VIA OGT/CLAMPED X ONE HR. THEN PUT BACK TO LIS. GRAVES CATH TO GRAVITY W/GOOD UOP. PT. HAS ALOT OF SELF INFLICTED SCRATCHES TO FACE-ACCORDING TO HUSBANDS TESTIMONY. TMAX AT 99.7. COOLING MEASURES STARTED. PT.IS VENTED W/PATENT AIRWAY. POSSIBLE WEANING TRIALS IN AM. CONT. POC.
[2017-02-21] MEDS: PIPERACILLIN /TAZOBACTAM 3.375 G in IV D5W 50 ML IV SCH ×4 (04:00→21:34)
[2017-02-21 04:48] LABS: BASOPHILS # (AUTO) 0.1 /CMM (0.0-0.2); BASOPHILS % (AUTO) 0.6 % (0.0-2.0); EOSINOPHILS # (AUTO) 0.3 /CMM (0.0-0.7); EOSINOPHILS % (AUTO) 2.3 % (0.0-6.0); HEMATOCRIT 31 % (33-45); HEMOGLOBIN 10.3 g/dL (11.5-14.8); LYMPHOCYTES # (AUTO) 0.9 /CMM (0.8-4.8); LYMPHOCYTES % (AUTO) 7.7 % (20.0-44.0); MEAN CORPUSCULAR HEMOGLOBIN 34 PG (26.0-33.0); MEAN CORPUSCULAR HGB CONC 33 g/dl (31.0-36.0); MEAN CORPUSCULAR VOLUME 101 fL (82-100); MONOCYTES # (AUTO) 0.8 /CMM (0.1-1.30); MONOCYTES % (AUTO) 6.9 % (2.0-12.0); NEUTROPHILS # (AUTO) 10.1 /CMM (1.8-8.9); NEUTROPHILS % (AUTO) 82.5 % (43.0-81.0); PLATELET COUNT (AUTO) 51 /CMM (150-450); RDW COEFFICIENT OF VARIATION 14.9 (11.5-15.0); RED BLOOD CELL COUNT(AUTO) 3.08 MIL/uL (4.0-5.2); WHITE BLOOD COUNT (AUTO) 12.2 K/uL (4.3-11.0)
[2017-02-21 05:03] LABS: CALCIUM, SERUM 7.1 mg/dL (8.5-10.1); CREATININE 0.7 mg/dL (0.6-1.3); MAGNESIUM 1.8 mg/dL (1.8-2.4); PHOSPHORUS 1.6 mg/dL (2.5-4.9); POTASSIUM 3.8 mmol/L (3.5-5.1)
[2017-02-21 05:39] LABS: BAND % (MANUAL) 1 % (0.0-5.0); LYMPHOCYTES % (MANUAL) 5 % (16-48); MONOCYTES % (MANUAL) 7 % (0-11.0); MYELOCYTES % 1 % (0-0); NEUTROPHILS % (MANUAL) 86 (42-76)
--- NOTE | 2017-02-21 06:00 | NUR ---
HEMODIALYSIS LAB TECHNICIAN - PT. HAD COMPLETE BEDBATH DONE AT 3AM. MOISTURIZER TO FACE HELPED SLOUGH OFF VERY DRY SKIN. NO CHANGES NOTED FROM PREVIOUS ASSESSMENTS. REPORT ENDORSED TO RENNY BANKS. CONT.POC.
--- NOTE | 2017-02-21 08:19 | NUR ---
PT UNABLE TO ABRAHAM. WEANING AT THIS TIME. INCREASED RR TO 40-50BPM. RN AWARE. BACK TO AC MODE.
--- NOTE | 2017-02-21 08:31 | NUR ---
WOUND CARE CONSULT: PT NOT SEEN YET FOR SKIN ASSESSMENT DUE TO PT BEING WEANED FROM VENTILATOR PER RN. PT ON FIRST STEP MATTRESS. ALL SKIN PROTECTION MEASURES IN PLACE. DISCUSSED WITH NURSING STAFF. WILL SEE PT PT CONDITION PERMITS. MD IN AGREEMENT WITH PLAN OF CARE.
[2017-02-21] MEDS: Folic acid 1 MG in IV D5W 50 ML IV SCH (09:12)
[2017-02-21] MEDS: Thiamine 100 MG in IV D5W 50 ML IV SCH (09:12)
[2017-02-21] MEDS: VANCOMYCIN 0.75 GM in IV D5W 250 ML IV SCH ×2 (09:12→20:36)
[2017-02-21] MEDS: IV D5/ 0.9% NACL 1,000 ML IV PRN ×2 (09:14→21:32)
[2017-02-21] MEDS: CALCITRIOL ORAL SOLUTION 1 MCG/ML NG SCH (09:19)
--- NOTE | 2017-02-21 10:06 | NUR ---
FLOOR SCRAPER FOR WEANING, RN TURNED OFF PATIENT'S SEDATION. PATIENT NOTED TO BE ALERT AND AWAKE. WAS ABLE TO FOLLOW COMMANDS. HOWEVER, PATIENT'S NOTED TO BE TACHYEPNIC AT WITH RR 18-22 ON AC MODE. WHEN PLACED ON SIMV MODE PATIENT NOTED TO BE TACHEPNEIC AT 40S AND 50S. PATIENT PLACED BACK ON SEDATION AND AC MODE ON THE VENT. SIGHTSEEING GUIDE AWARE.
[2017-02-21] MEDS ORDERED: POTASSIUM CHLORIDE 20 MEQ POWDER PACKET GT ONE (10:30)
--- NOTE | 2017-02-21 13:18 | NUR ---
SW was once again unable to speak with patient due to intubation. However, SW was able to speak to the pt's [Jose Bell, ]. expressed concern for the pt's health and well-being due to ETOH abuse. reported that the pt currently drinks 1 pint of vodka per day. reported that he works and that the patient stays at home during the day. He is unable to care for her while at work and worries for her safety. He also reported that the pt had a hip replacement and has difficulty walking. He reports that the pt is in a downward spiral and is unsure how much more he can handle if his does not seek treatment. requested assistance with linkage to a substance abuse treatment facility. SW agreed to speak with the pt regarding treatment and agreed to assist with linkage to a treatment facility. SW will attempt to link patient to [facility] [[phone]] or [facility] [[phone]].
[2017-02-21] MEDS ORDERED: NEUTRA PHOS 1 POWD.PACKET NG ONE (13:30)
[2017-02-21] MEDS: PANTOPRAZOLE 80 MG in IV NS 0.9% 500 ML IV PRN (13:55)
[2017-02-21] MEDS ORDERED: NEUTRA PHOS 1 POWD.PACKET PO ONE (14:30)
--- NOTE | 2017-02-21 19:14 | NUR ---
TYPESETTERS PRINTER REPORT GIVEN TO RECEIVING RN FOR CONTINUITY OF CARE.
--- NOTE | 2017-02-21 20:42 | NUR ---
PT RECEIVED INTUBATED 7.5 ETT SECURED AT 23CM AT THE LIP. NO RESP DISTRESS NOTED. PT TOLERATING VENT SETTINGS. SX'D FOR MOD AMT OF THIN WHITE SECRETIONS. VENT ALARMS SET AND AUDIBLE. AMBU BAG AT BEDSIDE. VENT PLUGGED INTO RED OUTLET. WILL CONTINUE TO MONITOR. Addendum: 02/21/17 at 2042 by SALLY LUIS RT Amended: Links added.
[2017-02-22] VITALS (52 sets, daily range): BP systolic 97–175; BP diastolic 56–112
[2017-02-22] MEDS: PANTOPRAZOLE 80 MG in IV NS 0.9% 500 ML IV PRN (00:25)
[2017-02-22] MEDS: PROPOFOL 100 ML IV PRN ×6 (01:57→23:10)
[2017-02-22] MEDS: PIPERACILLIN /TAZOBACTAM 3.375 G in IV D5W 50 ML IV SCH ×4 (03:31→21:37)
--- NOTE | 2017-02-22 03:45 | NUR ---
CUSTOMER SUCCESS INTERN - REC'D PT. ON DIPRIVAN GTT. AT 70MCG/KG/MIN. PT. RESPONDS W/TACTILE STIM. DURING RE - POSITIONING. VANCO TROUGH DRAWN AT 20:00=RESULT IS #16. VANCO GIVEN. SBP'S ARE ELEVATED W/3AM BATH, WHEN SX'D OR AGAIN W/TACTILE STIM. HR/SR/70-90'S. OGT TO LIS, VENTED=AC-14,450-TV,40% & PEEP OF 5. ORALLY PT. HAS COPIOUS AMTS OF CLEAR SX'S. TRACHEAL SX'S ARE BROWNISH. PT'S TEMPS ARE RUNNING IN THE 99'S. COOLING MEASURES GIVEN. BILAT.SOFT WRIST RESTRAINTS ARE INTACT PER SAFETY PROTOCOL. GRAVES CATH TO GRAVITY.RUE PICC LINE HAS DIPRIVAN GTT, D5NS AT 100CC/HR & PROTONIX GTT AT 50CC/HR INFUSING VIA BAUER PUMPS. CONT.POC.
[2017-02-22 04:32] LABS: BASOPHILS % (AUTO) 0.2 % (0.0-2.0); EOSINOPHILS # (AUTO) 0.3 /CMM (0.0-0.7); EOSINOPHILS % (AUTO) 2.9 % (0.0-6.0); HEMATOCRIT 30 % (33-45); LYMPHOCYTES # (AUTO) 0.8 /CMM (0.8-4.8); LYMPHOCYTES % (AUTO) 7.6 % (20.0-44.0); MEAN CORPUSCULAR HEMOGLOBIN 34 PG (26.0-33.0); MEAN CORPUSCULAR HGB CONC 33 g/dl (31.0-36.0); MEAN CORPUSCULAR VOLUME 101 fL (82-100); MONOCYTES # (AUTO) 2.1 /CMM (0.1-1.30); MONOCYTES % (AUTO) 19.9 % (2.0-12.0); NEUTROPHILS # (AUTO) 7.5 /CMM (1.8-8.9); NEUTROPHILS % (AUTO) 69.4 % (43.0-81.0); PLATELET COUNT (AUTO) 71 /CMM (150-450); RDW COEFFICIENT OF VARIATION 14.9 (11.5-15.0); RED BLOOD CELL COUNT(AUTO) 2.97 MIL/uL (4.0-5.2); WHITE BLOOD COUNT (AUTO) 10.8 K/uL (4.3-11.0)
[2017-02-22 04:48] LABS: CALCIUM, SERUM 7.1 mg/dL (8.5-10.1); CREATININE 0.6 mg/dL (0.6-1.3); MAGNESIUM 1.4 mg/dL (1.8-2.4); PHOSPHORUS 2.3 mg/dL (2.5-4.9); POTASSIUM 2.9 mmol/L (3.5-5.1)
[2017-02-22 05:47] LABS: EOSINOPHILS % (MANUAL) 6 % (0-4); LYMPHOCYTES % (MANUAL) 7 % (16-48); MONOCYTES % (MANUAL) 14 % (0-11.0); NEUTROPHILS % (MANUAL) 73 (42-76)
--- NOTE | 2017-02-22 08:00 | NUR ---
ICU/RN: INTITIAL NOTES,AM RECEIVED REPORT FROM NIGHT NURSE. PT SEDATED ON DIPRIVAN. SEDATION VACATION WILL TAKE PLACE AT 0900. PT ETT 7.5, 23 AT THE LIP. ON VENT SETTINGS ORDERED BY MD, NO ACUTE DISTRESS NOTED AT THIS TIME. WEENING TRIAL WILL BE DONE LATER THIS AM. PT SINUS RHYTHM TO SINUS TACKY ON TELE. MAINTAINING BP. OG TUBE IN PLACE, LIS, MINIMAL OUTPUT NOTED. GRAVES CATH IN PLACE, DRAINING YELLOW URINE. RIGHT UPPER ARM PICC PATENT AND INTACT, IV FLUIDS AND PROTONICS DRIP INFUSING ORDERED. PT ON BILATERAL WRIST RESTRAINTS, CHECKED AND ASSESSED PER PROTOCOL. ALL NEEDS WILL BE MET, SAFETY MEASURES TAKEN, BED IN LOW POSITION, SIDE RIALS UP, CALL LIGHT WITHIN REACH. WILL CONTINUE TO MONITOR AND CARE
[2017-02-22] MEDS: CALCITRIOL ORAL SOLUTION 1 MCG/ML NG SCH (08:29)
[2017-02-22] MEDS: VANCOMYCIN 0.75 GM in IV D5W 250 ML IV SCH (08:33)
[2017-02-22] MEDS ORDERED: IV SET PRIMARY PUMP SET 1 EA INFUS.SET MC ONE ×3 (08:40→21:39)
[2017-02-22] MEDS: Thiamine 100 MG in IV D5W 50 ML IV SCH (08:44)
[2017-02-22] MEDS: Folic acid 1 MG in IV D5W 50 ML IV SCH (08:44)
[2017-02-22] MEDS: POTASSIUM CL. PREMIX PERIPHER. 50 ML IV SCH ×6 (08:47→15:07)
[2017-02-22] MEDS: Magnesium 1GM/D5W 100ML PREMIX 100 ML IV SCH ×4 (09:20→12:38)
[2017-02-22] MEDS: FUROSEMIDE 20 MG/2 ML VIAL IV SCH ×2 (10:07→21:36)
--- NOTE | 2017-02-22 10:30 | NUR ---
ICU/RN: SEDATION TITRATED OFF. WEENING TRIAL DONE. PT FAILED, RESPIRATION RATE OF 60, HEART RATE 120S. PER DR. RODRÍGUEZ PT WAS PLACED ON PREVIOUS VENT SETTINGS. WILL REATTEMPT. WILL CONTINUE TO MONITOR AND ASSESS
[2017-02-22] MEDS: PANTOPRAZOLE 40 MG VIAL IV SCH (10:34)
--- NOTE | 2017-02-22 10:44 | NUR ---
RT PER DR RODRÍGUEZ WEANING TRIAL INITIATED. PATIENT WAS UNABLE TO CONTROL HER RR AND SHOWED SIGNS OF SOB AND DISTRESS. PER DR CASTANEDA ASSESSMENT PATIENT PLACED BACK ON AC MODE. ALARMS CHECKED + AUDIBLE
[2017-02-22] MEDS ORDERED: NEUTRA PHOS 1 POWD.PACKET NG ONE (12:30)
--- NOTE | 2017-02-22 14:15 | NUR ---
ICU/RN: TEMP 99.8, COOLING MEASURES TAKEN, TYLENOL ADMINISTERED, WILL REASSESS
[2017-02-22] MEDS: ACETAMINOPHEN 650 MG/20.3 ML UDC NG PRN ×2 (15:52→20:36)
--- NOTE | 2017-02-22 18:35 | NUR ---
ICU/RN ENDING NOTES,AM REPORT WILL BE ENDORSED TO NIGHT NURSE FOR CONTINUATION OF CARE. ALL NEEDS MET. PT INTUBATED ON VENT SETTINGS ORDERED BY MD. NO ACUTE DISTRESS NOTED. PT ON TELE, SINUS. PT SEDATED ON DIPRIVAN, WHEN ON SEDATION VACATION, PT OPENS EYES AND FOLLOWS COMMANDS. OG TUBE TO LIS, MINIMAL OUTPUT NOTED. GRAVES IN PLACE, GOOD URINE OUTPUT NOTED. PICC LINE IN PLACE. NO S/S OF INFECTION NOTED. BED IN LOW POSITION, SIDE RIALS UP, CALL LIGHT WITHIN REACH.
--- NOTE | 2017-02-22 19:30 | NUR ---
BOND UNDERWRITER. INITIAL ASSESSMENT. RECEIVED THE PT REST ON THE BED. ORALLY INTUBATED. SEDATED WITH DIPRIVAN. ETT 7.5CM,LIP 23CM,,AC 14,TV 450, FIO2 40%,PEEP 5. SAT 98%. NO ACUTE DISTRESS NOTED. METAL ENGINEERING PROCESS WORKER SHOWING NSR. IV RT UPPER ARM PICC LINE. DIPRIVAN 70 MCG/KG/MIN. OGT INTACT. LOW INTERMITTENT SUCTION. FC PATENT. SHON SOFT WRIST RESTRAINT CHECKED AND RELEASED. NO INJURY OR REDNESS NOTED. NPO. HOB ELEVATED. SHON LOWER AND UPPER EXTREMITY SWOLLEN. HOB ELEVATED. TURN AND REPOSITION Q2H. WILL CONTINUE TO MONITOR VITALS.
[2017-02-23] VITALS (37 sets, daily range): BP systolic 100–174; BP diastolic 57–113
--- NOTE | 2017-02-23 02:40 | NUR ---
FRONTEND ENGINEER.AM CARE. ORAL CARE, BED BATH GIVEN. LINEN CHANGED, REMAINING SAME VENT SETTING TOLERATED WELL. SAT 98%. NO ACUTE DISTRESS NOTED. GROUNDING ENGINEER SHOWING NSR. IV RT UPPER ARM PICC LINE. DIPRIVAN 70MCG/KG/MIN. HOB ELEVATED. NPO. SHON SOFT WRIST RESTRAINT CHECKED AND RELEASED. NO INJURY OR REDNESS NOTED. FC PATENT. URINE DRAINING. WILL CONTINUE TO MONITOR VITALS.
[2017-02-23] MEDS: PROPOFOL 100 ML IV PRN ×2 (04:01→09:09)
[2017-02-23] MEDS: PIPERACILLIN /TAZOBACTAM 3.375 G in IV D5W 50 ML IV SCH ×4 (04:01→21:18)
[2017-02-23 04:45] LABS: EOSINOPHILS # (AUTO) 0.4 /CMM (0.0-0.7); EOSINOPHILS % (AUTO) 3.7 % (0.0-6.0); HEMATOCRIT 31 % (33-45); HEMOGLOBIN 10.6 g/dL (11.5-14.8); LYMPHOCYTES # (AUTO) 1.1 /CMM (0.8-4.8); LYMPHOCYTES % (AUTO) 10.7 % (20.0-44.0); MEAN CORPUSCULAR HEMOGLOBIN 34 PG (26.0-33.0); MEAN CORPUSCULAR HGB CONC 34 g/dl (31.0-36.0); MEAN CORPUSCULAR VOLUME 100 fL (82-100); MONOCYTES # (AUTO) 3.4 /CMM (0.1-1.30); MONOCYTES % (AUTO) 33.5 % (2.0-12.0); NEUTROPHILS # (AUTO) 5.3 /CMM (1.8-8.9); NEUTROPHILS % (AUTO) 52.1 % (43.0-81.0); PLATELET COUNT (AUTO) 123 /CMM (150-450); RDW COEFFICIENT OF VARIATION 15.2 (11.5-15.0); RED BLOOD CELL COUNT(AUTO) 3.12 MIL/uL (4.0-5.2); WHITE BLOOD COUNT (AUTO) 10.1 K/uL (4.3-11.0)
[2017-02-23 05:01] LABS: CALCIUM, SERUM 7.9 mg/dL (8.5-10.1); CREATININE 0.6 mg/dL (0.6-1.3); MAGNESIUM 1.8 mg/dL (1.8-2.4); PHOSPHORUS 3.8 mg/dL (2.5-4.9)
[2017-02-23 05:18] LABS: POTASSIUM 2.7 mmol/L (3.5-5.1)
[2017-02-23 05:35] LABS: EOSINOPHILS % (MANUAL) 2 % (0-4); LYMPHOCYTES % (MANUAL) 11 % (16-48); MONOCYTES % (MANUAL) 34 % (0-11.0); NEUTROPHILS % (MANUAL) 53 (42-76)
[2017-02-23] MEDS ORDERED: POTASSIUM CHLORIDE 20 MEQ POWDER PACKET ONE (05:53)
[2017-02-23] MEDS: POTASSIUM CHLORIDE 20 MEQ POWDER PACKET GT SCH ×3 (05:58→07:42)
--- NOTE | 2017-02-23 05:58 | NUR ---
CHIMNEY REPAIRER. LAB CALLER FOR POTASSIUM 2.7. PAGED DR LO. . NEW ORDER RECEIVED. POTASSIUM 60 MEQ GT.
--- NOTE | 2017-02-23 07:00 | NUR ---
ICU INITIAL NOTES RECEIVED PT IN BED, ON SEDATION, PT IS ON MECH VENT, ETT 7.5 LIP 23CM, AC 14 TV 450 FIO2 40% PEEP 5, SATING 100% ON MONITOR, NO S/S OF RESP. DISTRESS OR SOB NOTED AT THIS TIME, PT IS ON TELE MONITOR SHOWING SR 90'S. PT HAS BILATERAL WRIST RESTRAINTS, IN PLACE AND CHECK AND RELEASED, PT HAS OGT IN PLACE, PATENT/INTACT, FLUSHING WELL, ATTACHED TO LIS, PT IS NOTED WITH FACIAL REDNESS AND SCABS, PT HAS CARRIE PICC, RUNNING DIPRIVAN @ 70MCG/MIN/KG, C/D/I/PATENT, FLUSHING WELL, WITH GOOD BLOOD RETURN, NO S/S OF INFECTION/ INFILTRATION NOTED AT THIS TIME, R HAND # 18G, SL, C/D/I/PATENT/FLUSHING WELL, NO BLOOD RETURN, PT HAS F/C DRAINING URINE TO GRAVITY, INTACT/PATENT, ALL SAFETY MEASURES IN PLACE AT ALL TIMES, CALL LIGHT WITHIN EASY REACH, WILL MONITOR PT CLOSELY FOR CHANGES.
[2017-02-23] MEDS ORDERED: IV SET PRIMARY PUMP SET 1 EA INFUS.SET MC ONE (07:34)
[2017-02-23] MEDS: Thiamine 100 MG in IV D5W 50 ML IV SCH (07:43)
[2017-02-23] MEDS: Folic acid 1 MG in IV D5W 50 ML IV SCH (07:43)
--- NOTE | 2017-02-23 08:00 | NUR ---
REWIND OPERATOR NOTES K+ WAS REPLACED WITH 60MEQ
[2017-02-23] MEDS: CALCITRIOL ORAL SOLUTION 1 MCG/ML NG SCH (08:08)
--- NOTE | 2017-02-23 08:57 | NUR ---
ICU NOTES SEDATION VACATION DIPRIVAN WAS TURNED OFF, PT FOLLOWING ALL COMMANDS, OPENS EYES, SQUEEZED BILATERAL HANDS AND MOVES BILATERAL FEET, PT NODS TO QUESTIONS, VVS AT THIS TIME, RESTRAINTS REMAIN IN PLACE. WILL CONT. TO MONITOR
[2017-02-23] MEDS ORDERED: DC PROPOFOL WHEN EXTUBATED XX PRN (09:00)
--- NOTE | 2017-02-23 09:30 | NUR ---
ICU NOTES SEEN PT, AWARE OF LABS AND CXR, MD AWARE OF SEDATION VACATION, PT RESTARTED ON DIPRIVAN @ 70MCG/MIN/KG, INPUTTED MD ORDERS TO DECREASE DIPRIVAN @20MCG/MIN/KG, VENT CHANGES AND ABG IN 30 MINS. WILL CLOSELY MONITOR
[2017-02-23] MEDS: PANTOPRAZOLE 40 MG VIAL IV SCH (09:38)
--- NOTE | 2017-02-23 10:15 | NUR ---
PT EXTUBATED PER MD ORDER. ZERO DISTRESS NOTED
--- NOTE | 2017-02-23 10:27 | NUR ---
ICU NOTES PT ON SIMV, ABG COMPLETED AFTER 30MINS, RESULT REPLIED TO , ORDERED EXTUBATION, DIPRIVAN WAS TURNED OFF, PT IS EXTUBATED, PLACED ON 3LNC, SATING 100%, PT WAS ABLE TO SAY HELLO, PT INSTRUCTED TO COUGH, WILL KEPT HOB ELEVATED, AT BEDSIDE, WILL MONITOR CLOSELY
[2017-02-23 10:37] LABS: CHOLESTEROL 166 mg/dL (<200); LDL 86 mg/dL (0-99); TRIGLYCERIDES 410 mg/dL (30-150)
[2017-02-23 10:48] LABS: ABG BASE EXCESS -3.4 mmol/L; ABG OXYGEN SATURATION 95.3 % (92.0-98.5); ABG PCO2 26.7 mmHg (35.0-45.0); ABG PH 7.472 (7.350-7.450); ABG PO2 82.4 mmHg (75.0-100.0); AaDO2 172.1 mmHg; COHb 0.1 % (0.5-1.5); MetHb 0.8 % (0.0-1.5); O2Hb 94.4 % (94.0-97.0); PEEP,BG 5 cm H2O; SITE, ABG Right Radial; VENT MODE, BG SIMV PSV 12; VT, ABG 450 mL
[2017-02-23 10:57] LABS: HDL CHOLESTEROL < 10 mg/dL (40-60)
[2017-02-23] MEDS: LORAZEPAM INJ 2 MG/ML VIAL IVP PRN ×3 (11:40→23:22)
--- NOTE | 2017-02-23 11:48 | NUR ---
ICU NOTES PT IS RESTLESS, TACHY 120'S, TAKING TO REMOVED IV, ATIVAN 1MG IVP WAS GIVEN PER MD ORDER, WILL ACCESS
[2017-02-23] MEDS: LEVALBUTEROL HCL NEB 1.25 MG/0.5 ML VIAL.NEB NEB SCH ×4 (11:59→23:32)
--- NOTE | 2017-02-23 12:18 | NUR ---
ICU NOTES MADE ROUNDS, AWARE OF PT'S TACHYCARDIA, MD ORDERED XOPENEX, NO OTHER ORDERS AT THIS TIME,
--- NOTE | 2017-02-23 13:28 | NUR ---
WOUND CARE CONSULT PATIENT SEEN AND SKIN INTEGRITY ASSESSMENT DONE. PATIENT PRESENTS WITH HEALED FACIAL ABRASIONS, WITH DRY SKIN AND REDNESS TO THE FACE. THERE IS A DRY AND HEALED ABRASION TO THE LEFT KNEE. THERE ARE NO OPEN WOUNDS AT THIS TIME. PATIENT WITH TRISTON AT 10. 1ST STEP LOW AIRLOSS MATTRESS IN PLACE FOR SKIN MANAGEMENT. Z GUARD IN PLACE FOR SKIN/MOISTURE MANAGEMENT. SKIN MANAGEMENT DISCUSSED WITH NURSING AT THE BEDSIDE. CONTINUE ALL SKIN MANAGMENT AND PREVENTION MEASURES PER CURRENT PLAN OF CARE. WILL SEE PRN. Addendum: 02/23/17 at 1334 by PATRICK SALAMANCA WNDNU Amended: Links added.
--- NOTE | 2017-02-23 18:38 | NUR ---
ICU NOTES PT IS RESTLESS, TACHY 120'S, TAKING TO REMOVED IV, ATIVAN 1MG IVP WAS GIVEN PER MD ORDER, WILL ACCESS
[2017-02-23 20:22] LABS: ABG BASE EXCESS -2.8 mmol/L; ABG OXYGEN SATURATION 94.2 % (92.0-98.5); ABG PCO2 32.2 mmHg (35.0-45.0); ABG PH 7.428 (7.350-7.450); ABG PO2 77.8 mmHg (75.0-100.0); AaDO2 112.7 mmHg; COHb 0.4 % (0.5-1.5); MetHb 0.9 % (0.0-1.5); SITE, ABG Right Radial; VENT MODE, BG 3L NC
--- NOTE | 2017-02-23 20:57 | NUR ---
received pt from day shift, s/p extubation, lethargic, does not follow commands, ST, ABG done is normal, on 3L 02 sat well, lungs diminished, no edema, NPO, f/c good urine output, v/s stable, no pain, is at the bedside, pt turned and repositioned.
[2017-02-23] MEDS: hydrALAZINE HCL IV 20 MG VIAL IV PRN (23:55)
[2017-02-24] VITALS (25 sets, daily range): BP systolic 96–173; BP diastolic 57–114
[2017-02-24] MEDS: MORPHINE SULFATE INJ 2 MG/ML DISP.SYRIN IV PRN ×3 (00:12→13:04)
[2017-02-24] MEDS: LEVALBUTEROL HCL NEB 1.25 MG/0.5 ML VIAL.NEB NEB SCH ×6 (03:43→23:23)
[2017-02-24] MEDS ORDERED: SECONDARY IV SET 1 EA INFUS.SET MC ONE (03:53)
[2017-02-24] MEDS ORDERED: IV NS 0.9% 250 ML IV ONE ×2 (03:57→21:34)
[2017-02-24] MEDS: PIPERACILLIN /TAZOBACTAM 3.375 G in IV D5W 50 ML IV SCH ×4 (03:58→21:14)
--- NOTE | 2017-02-24 04:31 | NUR ---
pt is resting in the bed, lethargic, follows simple commands at times, v/s stable, no pain, pt cleaned, changed and repositioned q2hrs.
[2017-02-24 04:53] LABS: BASOPHILS % (AUTO) 0.2 % (0.0-2.0); EOSINOPHILS # (AUTO) 0.3 /CMM (0.0-0.7); EOSINOPHILS % (AUTO) 2.2 % (0.0-6.0); HEMATOCRIT 32 % (33-45); HEMOGLOBIN 10.6 g/dL (11.5-14.8); LYMPHOCYTES # (AUTO) 1.3 /CMM (0.8-4.8); LYMPHOCYTES % (AUTO) 10.6 % (20.0-44.0); MEAN CORPUSCULAR HEMOGLOBIN 33 PG (26.0-33.0); MEAN CORPUSCULAR HGB CONC 33 g/dl (31.0-36.0); MEAN CORPUSCULAR VOLUME 101 fL (82-100); MONOCYTES # (AUTO) 4.7 /CMM (0.1-1.30); MONOCYTES % (AUTO) 36.9 % (2.0-12.0); NEUTROPHILS # (AUTO) 6.3 /CMM (1.8-8.9); NEUTROPHILS % (AUTO) 50.1 % (43.0-81.0); PLATELET COUNT (AUTO) 171 /CMM (150-450); RDW COEFFICIENT OF VARIATION 14.5 (11.5-15.0); RED BLOOD CELL COUNT(AUTO) 3.16 MIL/uL (4.0-5.2); WHITE BLOOD COUNT (AUTO) 12.7 K/uL (4.3-11.0)
[2017-02-24 04:55] LABS: CREATININE 0.6 mg/dL (0.6-1.3); MAGNESIUM 1.8 mg/dL (1.8-2.4); PHOSPHORUS 4.6 mg/dL (2.5-4.9)
[2017-02-24 04:59] LABS: POTASSIUM 2.7 mmol/L (3.5-5.1)
[2017-02-24 05:21] LABS: EOSINOPHILS % (MANUAL) 2 % (0-4); LYMPHOCYTES % (MANUAL) 7 % (16-48); MONOCYTES % (MANUAL) 35 % (0-11.0); NEUTROPHILS % (MANUAL) 54 (42-76); REACTIVE LYMPHOCYTES 2 % (0-0)
[2017-02-24] MEDS ORDERED: POTASSIUM CL. PREMIX PERIPHER. 50 ML ONE (06:10)
[2017-02-24] MEDS: POTASSIUM CL. PREMIX PERIPHER. 50 ML IV SCH ×8 (06:15→14:33)
[2017-02-24] MEDS: Folic acid 1 MG in IV D5W 50 ML IV SCH (07:35)
[2017-02-24] MEDS: Thiamine 100 MG in IV D5W 50 ML IV SCH (08:38)
[2017-02-24] MEDS: CALCITRIOL ORAL SOLUTION 1 MCG/ML NG SCH (08:39)
[2017-02-24 08:43] LABS: ABG BASE EXCESS -1.6 mmol/L; ABG OXYGEN SATURATION 93.8 % (92.0-98.5); ABG PCO2 30.3 mmHg (35.0-45.0); ABG PH 7.466 (7.350-7.450); ABG PO2 73.6 mmHg (75.0-100.0); AaDO2 119.1 mmHg; COHb 0.8 % (0.5-1.5); MetHb 0.7 % (0.0-1.5); O2Hb 92.4 % (94.0-97.0); SITE, ABG Right Radial; VENT MODE, BG 3LPM N/C
[2017-02-24] MEDS: PANTOPRAZOLE 40 MG VIAL IV SCH (09:37)
--- NOTE | 2017-02-24 12:00 | NUR ---
MACHINE PAINT MIXER Patient passed swallow evaluation and was advanced to puree diet with thick liquid, see speech therapist noted for details. Patient wanted only water for now, offered lunch tray but refused and stated to call if she wants to eat. Vitals remain stable.
--- NOTE | 2017-02-24 12:15 | NUR ---
GLASS MAKER Bronchoscopy done at bedside by Dr. Adhikari. Propofol drip restarted as sedation per . Specimen sent to laboratory. Addendum: 02/24/17 at 1244 by VICTOR MANUEL BERGER RN please disregard this note, wrong patient.
--- NOTE | 2017-02-24 12:45 | NUR ---
RESTAURANT KITCHEN AND SERVICE MANAGER Patient restless, tachycardic and having some tremors. Ativan given 1mg IV
[2017-02-24] MEDS: LORAZEPAM INJ 2 MG/ML VIAL IVP PRN ×2 (12:52→22:58)
--- NOTE | 2017-02-24 13:00 | NUR ---
TABLE INSPECTOR Patient remain restless, confused and wanted to get out bed. Morphine 2mg ivp given with relief. Calm and sleeping now and easily arousable.
[2017-02-24 13:09] LABS: OSMOLALITY,URINE 312 mOS/kg (340-1090)
[2017-02-24 15:13] LABS: URINE SODIUM, RANDOM 127 mmol/l (40-220)
--- NOTE | 2017-02-24 18:00 | NUR ---
TERRITORY ACCOUNT EXECUTIVE Transferred to JAMIL, stable. awake and coherent. no distress on room air. NSR on monitor. endorsed to Chely BANKS for cont. of care
--- NOTE | 2017-02-24 19:37 | NUR ---
PT AOX2, VSS, DENIES SOB, DENIES PAIN. FAMILY AT BEDSIDE. EMOTIONAL SUPPORT PROVIDED, ORIENTED TO THE UNIT, UPDATED ON PROGRESS.
--- NOTE | 2017-02-24 20:00 | NUR ---
RN NOTES RECEIVED PX AWAKE, ALERT, ORIENTED X 2, VERBAL BUT WITH VERY SOFT VOICE, INCOMPREHENSIBLE SOMETIMES BUT FOLLOWS COMMAND; ON ROOM AIR, PX DENIED PAIN, SOB, N/V; WITH GRAVES CATH TAPED TO THIGH TO BAG BY GRAVITY; WITH DVT PUMPS, HEELS OFFLOADED; PICC RIGHT UA FLUSHED WITH SALINE, INTACT PATENT; HOB AT 30 ANGLE; REPOSITIONED; DISCUSSED PLAN OF CARE.
--- NOTE | 2017-02-24 23:44 | NUR ---
RN NOTES PX NOW ASLEEP BUT EASILY AROUSABLE, FOLLOWS COMMAND; WAS GIVEN ATIVAN AT 2300 DUE TO RESTLESSNESS DESPITE INSTRUCTIONS. RESP EVEN AND UNLABORED, NOT IN DISTRESS, DENIED PAIN, SOB, N/V.
[2017-02-25] VITALS (10 sets, daily range): BP systolic 96–160; BP diastolic 57–108
[2017-02-25] MEDS: MORPHINE SULFATE INJ 2 MG/ML DISP.SYRIN IV PRN ×4 (02:26→20:30)
[2017-02-25] MEDS: LEVALBUTEROL HCL NEB 1.25 MG/0.5 ML VIAL.NEB NEB SCH ×6 (03:30→23:30)
[2017-02-25] MEDS: PIPERACILLIN /TAZOBACTAM 3.375 G in IV D5W 50 ML IV SCH ×4 (04:08→22:00)
[2017-02-25] MEDS: hydrALAZINE HCL IV 20 MG VIAL IV PRN ×2 (04:17→11:55)
--- NOTE | 2017-02-25 06:32 | NUR ---
RN NOTES PX HAD A TOTAL OF 3 BM LAST NIGHT, CLEANED AND CHANGED BED LINENS, PERICARE RENDERED, NO SKIN BREAKDOWN MINOO ON THE SACRAL AREA; DENIED PAIN, SOB, N/V; RESP EVEN AND UNLABORED; REPOSITIONED; ST ON MONITOR; IV ACCESS FLUSHED,PATENT AND INTACT; WILL ENDORSE TO NEXT RN.
[2017-02-25 06:41] LABS: BASOPHILS % (AUTO) 0.1 % (0.0-2.0); EOSINOPHILS # (AUTO) 0.1 /CMM (0.0-0.7); HEMATOCRIT 29 % (33-45); HEMOGLOBIN 9.9 g/dL (11.5-14.8); LYMPHOCYTES # (AUTO) 1.4 /CMM (0.8-4.8); LYMPHOCYTES % (AUTO) 9.5 % (20.0-44.0); MEAN CORPUSCULAR HEMOGLOBIN 34 PG (26.0-33.0); MEAN CORPUSCULAR HGB CONC 34 g/dl (31.0-36.0); MEAN CORPUSCULAR VOLUME 101 fL (82-100); MONOCYTES # (AUTO) 3.3 /CMM (0.1-1.30); MONOCYTES % (AUTO) 22.8 % (2.0-12.0); NEUTROPHILS # (AUTO) 9.8 /CMM (1.8-8.9); NEUTROPHILS % (AUTO) 66.6 % (43.0-81.0); PLATELET COUNT (AUTO) 192 /CMM (150-450); RDW COEFFICIENT OF VARIATION 14.9 (11.5-15.0); RED BLOOD CELL COUNT(AUTO) 2.92 MIL/uL (4.0-5.2); WHITE BLOOD COUNT (AUTO) 14.7 K/uL (4.3-11.0)
[2017-02-25 07:02] LABS: CALCIUM, SERUM 8.3 mg/dL (8.5-10.1); CREATININE 0.6 mg/dL (0.6-1.3); MAGNESIUM 1.7 mg/dL (1.8-2.4)
[2017-02-25] MEDS: LORAZEPAM INJ 2 MG/ML VIAL IVP PRN ×3 (07:45→20:30)
--- NOTE | 2017-02-25 07:45 | NUR ---
RN NOTES: PT RECEIVED ASLEEP, EASILY AROUSAL. ON 2LPM O2 VIA NC. RESPIRATION NORMAL & UNLABOURED. RESPONSIVE TO VERBAL & TACTILE STIMULI. ON TELE MONITOR SINUS TACHYCARDIA. F/C INTACT, DRAINING WITH YELLOW COLOR URINE WITH GRAVITY. RIGHT UPPER ARM PICC LINE, SALINE LOCK. SAFETY MEASURES OBSERVED. CALL LIGHT WITHIN REACH.
[2017-02-25 07:56] LABS: BAND % (MANUAL) 2 % (0.0-5.0); EOSINOPHILS % (MANUAL) 2 % (0-4); LYMPHOCYTES % (MANUAL) 9 % (16-48); MONOCYTES % (MANUAL) 17 % (0-11.0); NEUTROPHILS % (MANUAL) 70 (42-76)
[2017-02-25] MEDS: CALCITRIOL ORAL SOLUTION 1 MCG/ML NG SCH (08:40)
[2017-02-25] MEDS: Folic acid 1 MG in IV D5W 50 ML IV SCH (08:40)
[2017-02-25] MEDS: Thiamine 100 MG in IV D5W 50 ML IV SCH (09:43)
[2017-02-25] MEDS: PANTOPRAZOLE 40 MG VIAL IV SCH (09:43)
[2017-02-25] MEDS: Magnesium 1GM/D5W 100ML PREMIX 100 ML IV SCH ×2 (11:53→13:01)
--- NOTE | 2017-02-25 13:45 | NUR ---
RN NOTES: PT NOTED WITH HIGH BLOOD PRESSURE 160/108, HYDRALAZINE IV GIVEN ORDERED. @1312: BP 96/57 @1340: BP 105/60 CONTINUE TO MONITOR.
[2017-02-25] MEDS: POTASSIUM CL. PREMIX PERIPHER. 50 ML IV SCH ×6 (14:13→19:58)
--- NOTE | 2017-02-25 19:30 | NUR ---
RN INITIAL NOTE RECEIVED PT IN NO ACUTE DISTRESS IN BED. PT IS A/O X 2 WITH PERIODS OF CONFUSION. PT IS ON O2 VIA NC @ 2LPM AND TOLERATING WELL WITH O2 SAT @ 98%. PT IS ON TELE WITH ST ON THE MONITOR. PT HAS F/C THAT IS CLEAN DRY INTACT AND PATENT WITH CLEAR YELLOW URINE DRAINING. PT HAS CARRIE PICC LINE THAT IS CLEAN DRY INTACT AND PATENT WITH NS @ TKO. PT NOT C/O ANY SOB, DIFFICULTY BREATHING OR PAIN AT THIS TIME. BED IN LOW LOCK POSITION WITH RIALS UP X 2. CALL LIGHT WITHIN REACH AND ALL SAFETY MEASURES ENSURED AND CARRIED OUT. WILL CONTINUE TO MONITOR PT.
[2017-02-25] MEDS ORDERED: SECONDARY IV SET 1 EA INFUS.SET MC ONE (21:58)
--- NOTE | 2017-02-25 22:15 | NUR ---
JOCELYN NOTE STARTED BLOOD WILL CONTINUE TO MONITOR FOR ANY S/S OF BLOOD REACTION. Addendum: 02/25/17 at 2236 by GERARD CHAPARRO RN CHARTED ON WRONG PT. PLEASE DISREGARD NOTE.
[2017-02-26] VITALS: BP 105/70
[2017-02-26] MEDS: MORPHINE SULFATE INJ 2 MG/ML DISP.SYRIN IV PRN (01:37)
[2017-02-26] MEDS: LORAZEPAM INJ 2 MG/ML VIAL IVP PRN ×4 (01:37→16:13)
[2017-02-26] MEDS: LEVALBUTEROL HCL NEB 1.25 MG/0.5 ML VIAL.NEB NEB SCH ×6 (03:22→23:28)
[2017-02-26] MEDS ORDERED: IV SET PRIMARY PUMP SET 1 EA INFUS.SET MC ONE (03:33)
[2017-02-26] MEDS ORDERED: IV NS 0.9% 250 ML IV ONE (03:40)
[2017-02-26] MEDS: PIPERACILLIN /TAZOBACTAM 3.375 G in IV D5W 50 ML IV SCH ×4 (03:55→22:34)
[2017-02-26 04:00] VITALS: BP 129/90
--- NOTE | 2017-02-26 06:00 | NUR ---
RN NOTE PT PULLED OUT PICC LINE IN UPPER RIGHT ARM. PRESSURE PLACED ON SITE TO KEEP SITE FROM BLEEDING. NEW 22G IV PLACED IN RIGHT HAND. IV PATENT WITH SALINE FLUSH WITH GOOD BLOOD RETURN. PT CONTINUED ON NS @ TKO. WILL ENDORSE TO AM JOCELYN.
--- NOTE | 2017-02-26 06:36 | NUR ---
RN NOTE PT REMAINS IN NO ACUTE DISTRESS IN BED. PT DID NOT HAVE ANY SIGNIFICANT CHANGE IN CONDITION DURING SHIFT. WILL ENDORSE TO AM RN FOR CONTINUITY OF CARE.
[2017-02-26 07:55] LABS: CALCIUM, SERUM 8.7 mg/dL (8.5-10.1); CREATININE 0.7 mg/dL (0.6-1.3); MAGNESIUM 2.2 mg/dL (1.8-2.4); POTASSIUM 3.8 mmol/L (3.5-5.1)
[2017-02-26 08:00] VITALS: BP 145/98
--- NOTE | 2017-02-26 08:00 | NUR ---
RECEIVED PATIENT LYING IN BED CONFUSED WITH SOFT TIES TO BUE. PATIENT HAS RED RASH FACE, PSORIASIS PER REPORT, PIV R HAND WRAPPED TO PROTECT AFTER PATIENT DC'D HER PICC LINE DURING NIGHT. O2 2 LITERS NC, GRAVES DRAINING CLEAR YELLOW URINE. BED ALARMS ON AND SIDE RAILS UP FOR PT PROTECTION. REPOSITIONED PT UP IN BED. WILL OBSERVE
[2017-02-26] MEDS: Folic acid 1 MG in IV D5W 50 ML IV SCH (08:57)
[2017-02-26] MEDS: Thiamine 100 MG in IV D5W 50 ML IV SCH (08:58)
[2017-02-26] MEDS: CALCITRIOL ORAL SOLUTION 1 MCG/ML NG SCH (08:59)
[2017-02-26 11:24] LABS: EOSINOPHILS # (AUTO) 0.1 /CMM (0.0-0.7); HEMATOCRIT 34 % (33-45); LYMPHOCYTES # (AUTO) 1.4 /CMM (0.8-4.8); LYMPHOCYTES % (AUTO) 9.5 % (20.0-44.0); MEAN CORPUSCULAR HEMOGLOBIN 34 PG (26.0-33.0); MEAN CORPUSCULAR HGB CONC 33 g/dl (31.0-36.0); MEAN CORPUSCULAR VOLUME 102 fL (82-100); MONOCYTES % (AUTO) 13.8 % (2.0-12.0); NEUTROPHILS # (AUTO) 10.9 /CMM (1.8-8.9); NEUTROPHILS % (AUTO) 75.7 % (43.0-81.0); PLATELET COUNT (AUTO) 259 /CMM (150-450); RDW COEFFICIENT OF VARIATION 15.1 (11.5-15.0); WHITE BLOOD COUNT (AUTO) 14.4 K/uL (4.3-11.0)
[2017-02-26] MEDS: PANTOPRAZOLE 40 MG VIAL IV SCH (11:25)
[2017-02-26 12:00] VITALS: BP 146/98
[2017-02-26 16:00] VITALS: BP 122/83
--- NOTE | 2017-02-26 19:30 | NUR ---
JAMIL RN INITIAL NOTES RECEIVED PATIENT AWAKE, LETHARGIC, A/OX2, WITH PERIODS OF CONFUSION. ABLE TO MAKE NEEDS KNOWN. DENIES PAIN OR DISCOMFORT. RESPIRATIONS EVEN AND UNLABORED WITH 2LPMO2 VIA NC. ON TELE MONITOR ST WITH INVERTED TWAVES. SKIN WARM AND DRY TO TOUCH. WITH BILATERAL SOFT RESTRAINTS IN PLACE, CIRCULATION CHECKED. WITH F/C PATENT AND INTACT, DRAINING BY GRAVITY. TURNED AND REPOSITIONED. SIDE RAILS UP AND LOCKED. BED KEPT AT LOWEST POSITION. CALL LIGHT KEPT WITHIN EASY REACH. WILL CONTINUE TO MONITOR.
[2017-02-26 20:00] VITALS: BP 124/87
[2017-02-27] VITALS: BP_SYST 148; BP_SYST 151; BP_DIAS 94; BP_DIAS 96
[2017-02-27] MEDS: LEVALBUTEROL HCL NEB 1.25 MG/0.5 ML VIAL.NEB NEB SCH ×6 (03:30→23:43)
[2017-02-27 04:00] VITALS: BP_SYST 151; BP_DIAS 104; BP_DIAS 94
[2017-02-27] MEDS ORDERED: IV NS 0.9% 250 ML IV ONE (04:37)
[2017-02-27] MEDS: PIPERACILLIN /TAZOBACTAM 3.375 G in IV D5W 50 ML IV SCH ×4 (04:46→21:48)
--- NOTE | 2017-02-27 07:00 | NUR ---
RN JAMIL NOTES RECEIVED PT IN BED, ASLEEP, ABLE TO MAKE NEEDS KNOWN, PT IS CONFUSED AT TIMES, PT IS ON 2L NC, SATING WELL, NO S/S OF RESP.DISTRESS OR SOB NOTED AT THIS TIME, PT IS ON TELE MONITOR SHOWING SR @ 84 BPM, NO C/O FO CHEST PAIN OR DISCOMFORT NOTED AT THIS TIME, PT IS NOTED WITH FACIAL AND NECK REDNESS PT HAS F/C DRAINING WELL TO GRAVITY, INTACT/PATENT, PT HAS R HAND #22G, RUNNING TKO, C/D/I/PATENT, FLUSHING WELL, NO S/S OF INFECTION/INFILTRATION NOTED AT THIS TIME, PT HAS BILATERAL WRIST RESTRAINTS, CHECK AND RELEASE, SKIN CHECK DONE, ALL SAFETY MEASURES IN PLACE AT ALL TIMES, NEEDS MET AT THIS TIME, CALL LIGHT WITHIN EASY REACH, WILL MONITOR PT CLOSELY FOR CHANGES
--- NOTE | 2017-02-27 07:30 | NUR ---
JAMIL RN CLOSING NOTES NO SIGNIFICANT CHANGES OVERNIGHT. ALL NEEDS ANTICIPATED AND MET. SAFETY MEASURES MET. FREQUENTLY MONITORED. NO RESPIRATORY DISTRESS NOTED. ASPIRATION PRECAUTIONS OBSERVED. HOB KEPT ELEVATED. KEPT CLEAN AND DRY. TURNED AND REPOSITIONED Q2 and prn. F/C DRAINING, SNACKS OFFERED. WITH BILATERAL SOFT WRIST RESTRAINTS IN PLACE, CIRCULATION FREQUENTLY CHECKED. SIDE RAILS UP AND LOCKED. CALL LIGHT KEPT WITHIN EASY REACH. CONTINUITY OF CARE ENDORSED TO AM NURSE.
[2017-02-27 07:45] LABS: MONOCYTES # (AUTO) 1.3 /CMM (0.1-1.30)
[2017-02-27 07:52] LABS: BASOPHILS % (AUTO) 0.3 % (0.0-2.0); EOSINOPHILS # (AUTO) 0.1 /CMM (0.0-0.7); EOSINOPHILS % (AUTO) 0.9 % (0.0-6.0); HEMATOCRIT 29 % (33-45); LYMPHOCYTES # (AUTO) 1.1 /CMM (0.8-4.8); LYMPHOCYTES % (AUTO) 7.4 % (20.0-44.0); MEAN CORPUSCULAR HEMOGLOBIN 34 PG (26.0-33.0); MEAN CORPUSCULAR HGB CONC 34 g/dl (31.0-36.0); MEAN CORPUSCULAR VOLUME 101 fL (82-100); MONOCYTES % (AUTO) 9.4 % (2.0-12.0); NEUTROPHILS # (AUTO) 11.7 /CMM (1.8-8.9); RDW COEFFICIENT OF VARIATION 14.6 (11.5-15.0); RED BLOOD CELL COUNT(AUTO) 2.93 MIL/uL (4.0-5.2); WHITE BLOOD COUNT (AUTO) 14.3 K/uL (4.3-11.0)
[2017-02-27 08:00] VITALS: BP 156/100
[2017-02-27] MEDS ORDERED: IV SET PRIMARY PUMP SET 1 EA INFUS.SET MC ONE (08:03)
[2017-02-27 08:16] LABS: PLATELET COUNT (AUTO) 228 /CMM (150-450)
[2017-02-27] MEDS: Thiamine 100 MG in IV D5W 50 ML IV SCH (08:20)
[2017-02-27] MEDS: Folic acid 1 MG in IV D5W 50 ML IV SCH (08:20)
[2017-02-27] MEDS: CALCITRIOL ORAL SOLUTION 1 MCG/ML NG SCH (08:20)
[2017-02-27 08:24] LABS: BAND % (MANUAL) 1 % (0.0-5.0); LYMPHOCYTES % (MANUAL) 8 % (16-48); MONOCYTES % (MANUAL) 10 % (0-11.0); NEUTROPHILS % (MANUAL) 81 (42-76)
[2017-02-27 08:52] LABS: CALCIUM, SERUM 8.5 mg/dL (8.5-10.1); CREATININE 0.7 mg/dL (0.6-1.3); POTASSIUM 3.3 mmol/L (3.5-5.1)
[2017-02-27] MEDS: PANTOPRAZOLE 40 MG VIAL IV SCH (09:30)
[2017-02-27] MEDS ORDERED: POTASSIUM CHLORIDE 20 MEQ POWDER PACKET PO SCH (11:30)
[2017-02-27 12:00] VITALS: BP 134/87
[2017-02-27 16:00] VITALS: BP 119/84
[2017-02-27] MEDS: ENOXAPARIN SODIUM 40 MG/0.4 ML DISP.SYRIN SQ SCH (16:59)
[2017-02-27] MEDS: LORAZEPAM INJ 2 MG/ML VIAL IVP PRN (17:33)
--- NOTE | 2017-02-27 18:23 | NUR ---
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
--- NOTE | 2017-02-27 18:24 | NUR ---
RN CLOSING NOTES PT REMAINED STABLE DURING SHIFT, ALL ORDERS CARRIED OUT, ALL MEDICATIONS GIVEN, IV REMAINS INTACT,PATENT, F/C DRAINING WELL, ALL TREATMENTS CARRIED OUT, ALL SAFETY MEASURES IN PLACE AT ALL TIMES, CALL LIGHT WITHIN EASY REACH, ALL NEEDS MET, WILL GIVEN REPORT TO PM RN FOR ANNAMARIA
--- NOTE | 2017-02-27 19:30 | NUR ---
JAMIL BANKS INITIAL NOTES RECEIVED PATIENT AWAKE A/OX2, FAMILY AT BEDSIDE. STATES SHE'S FEELING BETTER. DENIES PAIN OR DISCOMFORT AT THIS TIME. SKIN WARM AND DRY TO TOUCH. DENIES SOB. ON TELE MONITOR SR WITH INVERTED TWAVES. HOB ELEVATED. SIDE RAILS UP AND LOCKED. BED KEPT AT LOWEST POSITION. CALL LIGHT KEPT WITHIN EASY REACH. WILL CONTINUE TO MONITOR. Addendum: 02/27/17 at 2004 by ANYA GUZMAN RN F/C IN PLACE, PATENT AND INTACT, DRAINING BY GRAVITY.
[2017-02-27 20:00] VITALS: BP 110/78
[2017-02-28] VITALS: BP 118/87
[2017-02-28 04:00] VITALS: BP 120/78
[2017-02-28] MEDS: LEVALBUTEROL HCL NEB 1.25 MG/0.5 ML VIAL.NEB NEB SCH ×6 (04:02→23:30)
[2017-02-28] MEDS ORDERED: IV NS 0.9% 250 ML IV ONE (04:31)
[2017-02-28] MEDS: PIPERACILLIN /TAZOBACTAM 3.375 G in IV D5W 50 ML IV SCH (04:39)
[2017-02-28 07:30] LABS: CALCIUM, SERUM 8.6 mg/dL (8.5-10.1); CREATININE 0.7 mg/dL (0.6-1.3)
[2017-02-28 08:00] VITALS: BP 132/89
--- NOTE | 2017-02-28 08:00 | NUR ---
JAMIL RN NOTES: RECEIVED PATIENT ALERT AND ORIENTED X1 HOWEVER, ORIENTED. ON 2L 02 VIA NC, NO DISTRESS NOTED. SR ON TELE MONITOR PATIENT CLEAN AND DRY, IV SITE PATENT AND INTACT. GRAVES DRAINING TO GRAVITY PATIENT TURNED AND REPOSITIONED AND EXTREMITIES OFFLOADED. CALL LIGHT PLACED WITHIN REACH. ALL NEEDS MET, SAFETY MEASURES OBSERVED. ONGOING MONITORING
[2017-02-28] MEDS: CALCITRIOL ORAL SOLUTION 1 MCG/ML NG SCH (09:11)
[2017-02-28] MEDS: THIAMINE HCL 100 MG TABLET PO SCH (09:11)
[2017-02-28] MEDS: PANTOPRAZOLE 40 MG VIAL IV SCH (09:12)
[2017-02-28] MEDS: FOLIC ACID 1 MG TABLET PO SCH (09:12)
[2017-02-28] MEDS: POTASSIUM CHLORIDE 20 MEQ POWDER PACKET PO SCH ×2 (11:57→12:39)
[2017-02-28 12:00] VITALS: BP 152/97
[2017-02-28 16:00] VITALS: BP 122/87
[2017-02-28] MEDS: BOOST PLUS FOOD-CHOCLATE 237 ML BOX PO SCH (17:14)
--- NOTE | 2017-02-28 18:25 | NUR ---
MANAGER ENDOSCOPY NOTE: PATIENT RESTING IN BED, ABLE TO STAND UP AND AMBULATE WITH PT, PATIENT ABLE TO TOLERATE MEALS WITH THICKENED LIQUIDS. POTASSIUM REPLACED PER ORDER. PATIENT KEPT CLEAN AND DRY, TURNED AND REPOSITIONED, EXTREMITIES OFFLOADED. NEEDS MET, MEDICATIONS ADMINISTERED ORDERED. WILL ENDORSE FOR CONTINUITY OF CARE.
--- NOTE | 2017-02-28 19:45 | NUR ---
RN OPENING NOTES RECEIVED REPORT FROM DAYSHIFT RN. FOUND Pt AWAKE, RESTING IN BED. EQUAL CHEST RISE AND FALL. Pt IS A/OX2, FORGETFUL, VERBAL, ABLE TO MAKE NEEDS KNOWN. NO S/S OF ACUTE DISTRESS OR SOB NOTED. GRAVES CATHETER IN PLACE. IV ACCESS ON RH 22G, TKO. SAFETY MEASURES IN PLACE. BED LOW, LOCKED, HOB ELEVATED, SIDE RAILS UP, BED ALARM ON, CALL LIGHT AND BEDSIDE TABLE WITHIN REACH. WILL CONTINUE TO MONITOR Pt THROUGHOUT THE NIGHT.
[2017-02-28 20:00] VITALS: BP 123/84
[2017-02-28] MEDS: ENOXAPARIN SODIUM 40 MG/0.4 ML DISP.SYRIN SQ SCH (23:32)
[2017-02-28] MEDS: LORAZEPAM INJ 2 MG/ML VIAL IVP PRN (23:42)
[2017-03-01] VITALS: BP 133/83
[2017-03-01] MEDS: LEVALBUTEROL HCL NEB 1.25 MG/0.5 ML VIAL.NEB NEB SCH ×6 (03:16→22:59)
[2017-03-01 04:00] VITALS: BP 125/81
--- NOTE | 2017-03-01 06:50 | NUR ---
RN CLOSING NOTES NO SIGNIFICANT CHANGES. NO S/S OF ACUTE DISTRESS OR SOB NOTED. ALL NEEDS MET AND ATTENDED TO. SAFETY MEASURES CARRIED OUT. WILL ENDORSE TO DAYSHIFT RN FOR Pt's ANNAMARIA.
[2017-03-01 07:34] LABS: BASOPHILS % (AUTO) 0.2 % (0.0-2.0); EOSINOPHILS # (AUTO) 0.1 /CMM (0.0-0.7); EOSINOPHILS % (AUTO) 0.9 % (0.0-6.0); HEMATOCRIT 35 % (33-45); HEMOGLOBIN 11.7 g/dL (11.5-14.8); LYMPHOCYTES # (AUTO) 1.8 /CMM (0.8-4.8); LYMPHOCYTES % (AUTO) 10.6 % (20.0-44.0); MEAN CORPUSCULAR HEMOGLOBIN 34 PG (26.0-33.0); MEAN CORPUSCULAR HGB CONC 33 g/dl (31.0-36.0); MEAN CORPUSCULAR VOLUME 102 fL (82-100); NEUTROPHILS % (AUTO) 82.3 % (43.0-81.0); PLATELET COUNT (AUTO) 438 /CMM (150-450); RDW COEFFICIENT OF VARIATION 14.7 (11.5-15.0); RED BLOOD CELL COUNT(AUTO) 3.44 MIL/uL (4.0-5.2)
[2017-03-01 07:37] LABS: CALCIUM, SERUM 9.4 mg/dL (8.5-10.1); CREATININE 0.7 mg/dL (0.6-1.3)
[2017-03-01 07:39] LABS: POTASSIUM 4.1 mmol/L (3.5-5.1)
[2017-03-01 08:00] VITALS: BP 135/86
[2017-03-01] MEDS: BOOST PLUS FOOD-CHOCLATE 237 ML BOX PO SCH ×2 (09:37→17:47)
[2017-03-01] MEDS: THIAMINE HCL 100 MG TABLET PO SCH (09:38)
[2017-03-01] MEDS: CALCITRIOL ORAL SOLUTION 1 MCG/ML NG SCH (09:38)
[2017-03-01] MEDS: FOLIC ACID 1 MG TABLET PO SCH (09:38)
[2017-03-01] MEDS: PANTOPRAZOLE 40 MG VIAL IV SCH (09:39)
[2017-03-01 10:00] VITALS: BP 135/86
[2017-03-01] MEDS ORDERED: SECONDARY IV SET 1 EA INFUS.SET MC ONE (14:53)
[2017-03-01] MEDS ORDERED: IV NS 0.9% 250 ML IV ONE (14:59)
[2017-03-01] MEDS ORDERED: IV SET PRIMARY PUMP SET 1 EA INFUS.SET MC ONE (14:59)
[2017-03-01] MEDS ORDERED: ONDANSETRON HCL/PF 4 MG/2 ML VIAL IV PRN (15:00)
[2017-03-01] MEDS ORDERED: MAG HYDROX/AL HYDROX/SIMETH 30 ML UDC PO PRN (15:00)
[2017-03-01] MEDS ORDERED: Magnesium 1GM/D5W 100ML PREMIX 100 ML IV SCH (15:00)
[2017-03-01 16:00] VITALS: BP 126/84
--- NOTE | 2017-03-01 16:41 | NUR ---
RN NOTES PT BECAME INCREASINGLY AGITATED, CONFUSED, MULTIPLE ATTEMPTS TO GET OUT OF BED, PT IS UNSTEADY IN GAIT, HIGH RISK FOR FALL, REORIENTED MULTIPLE TIMES, PT UNABLE TO FOLLOW SAFETY RULES, UNABLE TO REDIRECT PT, BED ALARM ON, CHANGED ROOM TO CLOSER TO THE NURSES STATION, PHOTOGRAPH TINTER KELLY NOTIFED GOT THE ORDERS FOR RESTRAINT, AND ATIVAN IV. CHARGE NURSE IS AWARE, WILL CONTINUE TO MONITOR CLOSELY.
[2017-03-01 20:00] VITALS: BP 124/89
--- NOTE | 2017-03-01 20:00 | NUR ---
MS RN NOTES ALERT AND ORIENTED. ON ROOM AIR. NO ACUTE RESP. DISTRESS NOTED. VERBALLY RESPONSIVE TO STIMULI. DENIES ANY PAIN WHEN ASKED. RIGHT UPPER ARM IV ACCESS NOTED, INTACT AND PATENT. WITH GRAVES CATH,DWELLING WELL. CLEAN AND DRY. ALL NEEDS ANTICIPATED. WILL CONT TO MONITOR.
[2017-03-01] MEDS: LORAZEPAM INJ 2 MG/ML VIAL IVP PRN (21:19)
[2017-03-01] MEDS: METRONIDAZOLE 500 MG TABLET PO SCH (21:19)
[2017-03-01] MEDS: ENOXAPARIN SODIUM 40 MG/0.4 ML DISP.SYRIN SQ SCH (21:20)
[2017-03-02] VITALS: BP 133/86
--- NOTE | 2017-03-02 | NUR ---
MS RN NOTES NO CHANGE OF CONDITION NOTED. WILL CONTINUE TO MONITOR.
[2017-03-02] MEDS: LEVALBUTEROL HCL NEB 1.25 MG/0.5 ML VIAL.NEB NEB SCH ×6 (03:26→22:49)
[2017-03-02 04:00] VITALS: BP 92/60
[2017-03-02] MEDS: METRONIDAZOLE 500 MG TABLET PO SCH ×3 (05:31→21:12)
--- NOTE | 2017-03-02 06:49 | NUR ---
OFFICE NURSE NOTES PT REMAINS STABLE THROUGHOUT THE NIGHT. WILL ENDORSE PT TO THE NEXT SHIFT.
--- NOTE | 2017-03-02 07:20 | NUR ---
RN INITIAL NOTE RECEIVED PT FROM PM NURSE. PT A/O X2. TELE ST. NO C/O SOB. FC INTACT. IV 22G PATENT AND INTACT. NO C/O PAIN 0/10. PT RESTING COMFORTABLY. WILL CONTINUE TO MONITOR CLOSELY.
[2017-03-02 07:22] LABS: CALCIUM, SERUM 8.9 mg/dL (8.5-10.1); CREATININE 0.7 mg/dL (0.6-1.3); POTASSIUM 3.9 mmol/L (3.5-5.1)
[2017-03-02 08:00] VITALS: BP 115/79
[2017-03-02] MEDS: CALCITRIOL ORAL SOLUTION 1 MCG/ML NG SCH (08:08)
[2017-03-02] MEDS: BOOST PLUS FOOD-CHOCLATE 237 ML BOX PO SCH ×2 (08:10→16:02)
[2017-03-02] MEDS: FOLIC ACID 1 MG TABLET PO SCH (08:11)
[2017-03-02] MEDS: PANTOPRAZOLE 40 MG VIAL IV SCH (09:30)
[2017-03-02] MEDS: THIAMINE HCL 100 MG TABLET PO SCH (09:30)
--- NOTE | 2017-03-02 09:30 | NUR ---
RN NOTE THIAMINE TAB BROKEN UNABLE TO GIVEN TO PT TO SWALLOW. NEEDED TO PULL ANOTHER TAB FROM PYXIS.
[2017-03-02 12:00] VITALS: BP 116/82
[2017-03-02] MEDS: DIPHENOXYLATE HCL/ATROP SULF 1 UDTAB TABLET PO PRN (14:47)
--- NOTE | 2017-03-02 15:04 | NUR ---
RN NOTE AWAITING PILOT BOAT DECKHAND VIA AMBULANCE REPORT GIV[facility] TO [facility].
--- NOTE | 2017-03-02 15:48 | NUR ---
RN NOTE CALLED DESTINI MENDOZA N.P. REGARDING PT TACHYCARDIA. ORDERED LIBRIUM 25MG PO Q 8HR.
[2017-03-02 16:00] VITALS: BP 134/83
[2017-03-02] MEDS: CHLORDIAZEPOXIDE HCL 25 MG CAPSULE PO SCH (16:02)
--- NOTE | 2017-03-02 16:47 | NUR ---
CERAMICS ENGINEER NOTE PHONE CALL RECEIVED VIA CRYS MENDOZA IN REGARDS TO PATIENT DISCHARGE INSTRUCTIONS STATES THAT PATIENT SHOULD CONTINUE LOVENOX FOR 21 DAY POST DISCHARGE
--- NOTE | 2017-03-02 17:33 | NUR ---
RN NOTE SPOKE TO BORIS MENDOZA PT REFUSING TO BE DC TODAY WILL GO TOMORROW. BORIS AWARE OF PT HR. PER PT HAS HX OF ANXIETY. WILL CONTINUE TO MONITOR.
--- NOTE | 2017-03-02 19:15 | NUR ---
RN INITIAL NOTE REPORT GIVEN TO GERARD SON NURSE FOR ANNAMARIA. PT A/O 2-[address] THROUGH OUT SHIFT. NO C/O SOB PT ON RA. FC INTACT. IV 22G PATENT AND INTACT. NO C/O PAIN 0/10. PT RESTING COMFORTABLY. MEDICATIONS GIVEN ALL ORDERS CARRIED OUT. POSSIBLE DC TOMORROW.
--- NOTE | 2017-03-02 19:20 | NUR ---
RN INITIAL NOTE RECEIVED PT IN NO ACUTE DISTRESS IN BED. PT IS A/O X 2 WITH PERIODS OF CONFUSION. PT IS ON RA AND TOLERATING WELL WITH O2 SAT @ 98%. PT IS ON TELE WITH ST ON THE MONITOR. PT HAS F/C THAT IS CLEAN DRY INTACT AND PATENT WITH CLEAR YELLOW URINE DRAINING. PT HAS LAC 20G LINE THAT IS CLEAN DRY INTACT AND PATENT WITH SALINE LOCK. PT NOT C/O ANY SOB, DIFFICULTY BREATHING OR PAIN AT THIS TIME. BED IN LOW LOCK POSITION WITH RIALS UP X 2. CALL LIGHT WITHIN REACH AND ALL SAFETY MEASURES ENSURED AND CARRIED OUT. WILL CONTINUE TO MONITOR PT.
[2017-03-02 20:00] VITALS: BP 104/75
[2017-03-02] MEDS: LORAZEPAM INJ 2 MG/ML VIAL IVP PRN (21:12)
[2017-03-02] MEDS: ENOXAPARIN SODIUM 40 MG/0.4 ML DISP.SYRIN SQ SCH (21:13)
[2017-03-03] VITALS: BP 96/63
[2017-03-03] MEDS: LEVALBUTEROL HCL NEB 1.25 MG/0.5 ML VIAL.NEB NEB SCH ×3 (02:58→11:30)
[2017-03-03 04:00] VITALS: BP 98/59
[2017-03-03] MEDS: METRONIDAZOLE 500 MG TABLET PO SCH ×2 (05:35→12:27)
--- NOTE | 2017-03-03 06:32 | NUR ---
RN CLOSING NOTE PT REMAINS IN NO ACUTE DISTRESS IN BED. PT DID NOT HAVE ANY SIGNIFICANT CHANGE IN CONDITION DURING SHIFT. WILL ENDORSE TO AM RN FOR CONTINUITY OF CARE.
--- NOTE | 2017-03-03 07:30 | NUR ---
initial note resting in bed a+o x3, breathing wnl, verbalizing needs. not appearing anxious by demeanor, however tachycardia 110-120, furniture assembler aware. LAC IV and f/c no complications at this time. denies pain. plan for discharge today, patient aware and compliant. patient requesting anti-diarrhea medication at this time. discussed plan of care. call light in reach
[2017-03-03 08:00] VITALS: BP_SYST 110; BP_SYST 91; BP_DIAS 62; BP_DIAS 75
[2017-03-03] MEDS: BOOST PLUS FOOD-CHOCLATE 237 ML BOX PO SCH (08:00)
[2017-03-03] MEDS: FOLIC ACID 1 MG TABLET PO SCH (08:50)
[2017-03-03] MEDS: CALCITRIOL ORAL SOLUTION 1 MCG/ML NG SCH (08:50)
[2017-03-03] MEDS: CHLORDIAZEPOXIDE HCL 25 MG CAPSULE PO SCH (08:50)
[2017-03-03] MEDS: THIAMINE HCL 100 MG TABLET PO SCH (08:50)
[2017-03-03] MEDS: DIPHENOXYLATE HCL/ATROP SULF 1 UDTAB TABLET PO PRN (08:53)
--- NOTE | 2017-03-03 10:35 | NUR ---
discharge planning due for discharge today per SEWING MACHINES SALESPERSON Gregorio Alexander. SEWING MACHINES SALESPERSON said remove Verma before transfer. SEWING MACHINES SALESPERSON aware dr. Wagner to review EKG before d/c. Dr. Wagner aware EKG resulted and said would be on unit shortly, also aware of ortho BP laying 114/67, HR 115, sitting 108/71, HR 118.
[2017-03-03 10:45] LABS: CALCIUM, SERUM 8.6 mg/dL (8.5-10.1); CREATININE 0.7 mg/dL (0.6-1.3); POTASSIUM 3.9 mmol/L (3.5-5.1)
[2017-03-03] MEDS: PANTOPRAZOLE 40 MG VIAL IV SCH (11:24)
[2017-03-03 12:00] VITALS: BP 102/70
--- NOTE | 2017-03-03 12:45 | NUR ---
discharge note patient left at this time via gurney with 2 EMT. gave report to nurse Uribe at [facility], aware of tachycardia. LAC IV removed, and aguero catheter removed, no complications- informed Jojo. patient's is at the bed side and confirmed having all belongings with patient. all paper work completed and signed yesterday. discharge photos in chart. provided extensive education regarding diagnosis, risk factor and preventative health care. left in stable condition
== END 2017-03-03 12:48 | DRG 870 ==
LOC: ER 03:01 → ICU 05:26 → TELE-TD 02-24 17:55 → TELE1 02-28 10:10 → MEDSG1 03-01 09:09 → TELE1 03-01 18:12
PROC: 0BH17EZ Insertion of Endotracheal Airway into Trachea, Via Natural or Artificial Opening (ICD-10-PCS; principal; 2017-02-18)
PROC: 5A1955Z Respiratory Ventilation, Greater than 96 Consecutive Hours (ICD-10-PCS; 2017-02-18)
PROC: 02HV33Z Insertion of Infusion Device into Superior Vena Cava, Percutaneous Approach (ICD-10-PCS; 2017-02-18)
PROC: B548ZZA Ultrasonography of Superior Vena Cava, Guidance (ICD-10-PCS; 2017-02-18)
PROC: 0DJD8ZZ Inspection of Lower Intestinal Tract, Via Natural or Artificial Opening Endoscopic (ICD-10-PCS; 2017-02-20)
PROC: 0DJ08ZZ Inspection of Upper Intestinal Tract, Via Natural or Artificial Opening Endoscopic (ICD-10-PCS; 2017-02-20)
DX: A41.9 Sepsis, unspecified organism (principal); I21.4 Non-ST elevation (NSTEMI) myocardial infarction; J69.0 Pneumonitis due to inhalation of food and vomit; J96.01 Acute respiratory failure with hypoxia; R53.2 Functional quadriplegia; R65.21 Severe sepsis with septic shock; N17.0 Acute kidney failure with tubular necrosis; G92 Toxic encephalopathy; J15.6 Pneumonia due to other Gram-negative bacteria; E13.10 Other specified diabetes mellitus with ketoacidosis without coma; E44.0 Moderate protein-calorie malnutrition; E87.1 Hypo-osmolality and hyponatremia; D68.9 Coagulation defect, unspecified; E87.2 Acidosis; Z68.1 Body mass index [BMI] 19.9 or less, adult; J98.11 Atelectasis; D69.6 Thrombocytopenia, unspecified; E87.6 Hypokalemia; E83.42 Hypomagnesemia; E83.39 Other disorders of phosphorus metabolism; E86.0 Dehydration; R74.0 Nonspecific elevation of levels of transaminase and lactic acid dehydrogenase [LDH]; K76.0 Fatty (change of) liver, not elsewhere classified; R00.0 Tachycardia, unspecified; L40.9 Psoriasis, unspecified; J32.9 Chronic sinusitis, unspecified; D52.9 Folate deficiency anemia, unspecified; E88.09 Other disorders of plasma-protein metabolism, not elsewhere classified; F10.20 Alcohol dependence, uncomplicated; I45.9 Conduction disorder, unspecified; D72.825 Bandemia; D63.8 Anemia in other chronic diseases classified elsewhere; E87.70 Fluid overload, unspecified
CPT/HCPCS: 31720; 36415; 36569; 36600; 70450-TC; 71010-TC; 74000-TC; 76700-TC; 80048-TC; 80053-TC; 80061-TC; 80076-TC; 80202-TC; 80305; 81000-TC; 82010-TC; 82140-TC; 82553-TC; 82803-TC; 82962-TC; 83540-TC; 83605-TC; 83735-TC; 83935-TC; 84100-TC; 84134-TC; 84300-TC; 84439-TC; 84443-TC; 84481; 84484-TC; 85025-TC; 85385-TC; 85396; 85610-TC; 85730-TC; 86706; 86803; 87040-TC; 87070-TC; 87081-TC; 87086-TC; 87340; 92526; 92611-TC; 93307-TC; 94002-TC; 94003-TC; 94640-TC; 94762-TC; 94799-TC; 97001-TC; 97110-TC; 97116-TC; 97530-TC; 99082-TC; A4606; A9563; C1751; C9113; G0480; J0360; J1650; J1815; J1940; J1956; J2060; J2270; J2310; J2370; J2543; J2704; J3370; J3411; J3475; J3480; J3490; J7030; J7040; J7042; J7050; J7060; J7070; Z7610

== ENCOUNTER 2020-09-16 11:01 | Outpatient (CLI) | payer MEDICARE, MEDICAID | END 2020-09-16 23:59 | disposition home or self-care (01) | LOC: CT 11:01 | DX: S06.5X9A Traumatic subdural hemorrhage with loss of consciousness of unspecified duration, initial encounter (principal); G31.9 Degenerative disease of nervous system, unspecified; Z98.890 Other specified postprocedural states; X58.XXXA Exposure to other specified factors, initial encounter; Y93.89 Activity, other specified; Y92.89 Other specified places as the place of occurrence of the external cause; Y99.8 Other external cause status | CPT/HCPCS: 70450-TC ==